=== PATIENT | male | born 1940 | race Caucasian/White ===

== ENCOUNTER 2016-07-31 13:45 | Inpatient (IN) | payer BC, MEDICARE ==
[~2016-07-31] VITALS: Ht 190.5 cm; Wt 95.7 kg
[~2016-07-31 13:45] MED LIST: ALLO100T PO; AMOX1TAB61 PO; ASPI81TA9 PO; ATOR20TA58 PO; CIPR500T94 PO; DEXL60CA PO; DILT180C29 PO; FINA5TAB PO; FURO-68 PO; FURO20TA3 PO; LISI-334 PO; LISI1TAB5 PO; MAGN400T22 PO; METO25TA4 PO; SENN8.6T3 PO; TIOT18CA IH; WARF1TAB74 PO; WARF2TAB PO; WARF5TAB7 PO
[2016-07-31 14:37] LABS: BILIRUBIN,URINE NEGATIVE (NEG); GLUCOSE,URINE NEGATIVE (NEG); NITRITE,URINE POSITIVE (NEG); PROTEIN,URINE 30 mg/dL (NEG-TRACE)
[2016-07-31 14:48] LABS: BACTERIA,URINE MANY /HPF (0-FEW); RBC,URINE >40 /HPF (0-2); SQUAMOUS EPITHELIAL CELL,UR OCC /LPF; WBC,URINE >40 /HPF (0-4)
[2016-07-31 15:07] LABS: INR 3.8 (0.8-1.1); PROTHROMBIN TIME PATIENT 34.9 SEC (11.7-14.0)
[2016-07-31] MEDS ORDERED: IV NORMAL SALINE 1000ML BAG 1,000 ML IV SCH (15:30)
[2016-07-31] MEDS ORDERED: ACETAMINOPHEN 325 MG TABLET. PO PRN (15:45)
[2016-07-31] MEDS ORDERED: PIP/TAZO PER PHARMACY MC PRN (15:45)
[2016-07-31] MEDS ORDERED: ONDANSETRON PF 4 MG/2 ML VIAL. IV PRN (15:45)
[2016-07-31 15:58] LABS: BASO % 1 % (0-3); EOS % 3 % (0-3); HEMATOCRIT 32.1 % (39.0-53.0); HEMOGLOBIN 11.1 g/dL (13.0-17.5); LYMPH # 1.5 x10^3/uL (1.0-4.8); LYMPH % 25 % (24-48); MEAN CORPUSCULAR HEMOGLOBIN 32 pg (25-35); MEAN CORPUSCULAR HGB CONC 35 g/dL (31-37); MEAN CORPUSCULAR VOLUME 92 fL (79-100); MONO % 9 % (0-9); NEUT % 63 % (31-73); PLATELET COUNT 137 x10^3/uL (140-400); RED BLOOD COUNT 3.49 x10^6/uL (4.30-5.70); RED CELL DISTRIBUTION WIDTH 15.7 % (11.5-14.5); WHITE BLOOD COUNT 6.1 x10^3/uL (4.0-11.0)
[2016-07-31] MEDS ORDERED: PIPERACILLIN/TAZOBACTAM 3.375 GM in IV NORMAL SALINE 50ML 50 ML IV ONE (16:00)
--- NOTE | 2016-07-31 16:18 | PDOC1 ---
History and Physical Date of Admission Date of Admission DATE: 07/31/16 TIME: 16:14 History of Present Illness History of Present Illness Mr. Miramontes, is a 75 year old male admit with hematuria, foul and cloudy urine He self caths for BPH, his insurance changed, and now he has to clean and re- use catheters, he has questions about this, how to maintain sterility and what are the best caths to avoid problems UA showed UTI, prior resistant organism per lab, ER was concerned with DC on levaquin due to QT interval, Past Medical History Cardiovascular: AFIB, HTN, Hyperlipidemia Pulmonary: Bronchitis, COPD, Pneumonia CENTRAL NERVOUS SYSTEM: Seizure GI: GERD Heme/Onc: Cancer, Other Psych: No pertinent hx Musculoskeletal: Osteoarthritis Rheumatologic: Gout Infectious disease: No pertinent hx Renal/: Chronic renal insuff, Benign prostatic enlarg., Hematuria Endocrine: No pertinent hx Past Surgical History Past Surgical History: Tonsillectomy, Colon Resection Family History Family History: Hypertension Social History Smoke: No (his smokes) ALCOHOL: none Drugs: None Current Medications Current Medications Current Medications Sodium Chloride 1,000 ml @ 1,000 mls/hr Q1H IV Last administered on 07/31/16 15:46; Start 07/31/16 at 15:30; Stop 07/31/16 at 16:29 Ondansetron HCl (Zofran) 4 mg PRN Q8HRS PRN IV NAUSEA/VOMITING; Start 07/31/16 at 15:45; Stop 08/01/16 at 15:44 Sodium Chloride 1,000 ml @ 100 mls/hr Q10H IV ; Start 07/31/16 at 15:36; Stop at 15:35 Acetaminophen (Tylenol) 650 mg PRN Q4HRS PRN PO FEVER; Start 07/31/16 at 15:45; Stop 08/01/16 at 15:44 Piperacillin Sod/ Tazobactam Sod (Zosyn Per Pharmacy) 1 each PRN DAILY PRN MC SEE COMMENTS; Start 07/31/16 at 15:45; Status UNV Piperacillin Sod/ Tazobactam Sod 3.375 gm/Sodium Chloride 50 ml @ 100 mls/hr 1X ONCE IV Last administered on 07/31/16 16:00; Start 07/31/16 at 16:00; Stop 07/31/16 at 16:29 Active Scripts Active Metoprolol Tartrate 25 Mg Tablet 12.5 Mg PO BID Senna (Sennosides) 8.6 Mg Tablet 8.6 Mg PO PRN BID PRN Mag-Oxide (Magnesium Oxide) 400 Mg Tablet 400 Mg PO DAILY Furosemide 20 Mg Tablet 60 Mg PO [id number] Reported Dexilant (Dexlansoprazole) 60 Mg Cap.mp 1 Cap PO DAILY Spiriva (Tiotropium [place]) 18 Mcg Cap.w.dev 1 Cap IH DAILY Warfarin Sodium 5 Mg Tablet 5 Mg PO DAILY Lisinopril 20 Mg Tablet 1 Tab PO DAILY Indication: blood pressure Next dose: 05/09/14 am Proscar (Finasteride) 5 Mg Tablet 1 Tab PO DAILY Indication: prostate Next dose; 05/09/14 am Diltiazem 24HR Cd (Diltiazem Hcl) 180 Mg Cap.er.24h 1 Cap PO DAILY Indication: heart rate/afib Next dose: 05/09/14 am Atorvastatin Calcium 20 Mg Tablet 20 Mg PO HS Indication: cholesterol Next dose; 05/09/14 bedtime Aspirin Ec (Aspirin) 81 Mg Tablet. 1 Tab PO DAILY Indication: heart/blood thinner Next dose: 05/09/14 am Allopurinol 100 Mg Tablet 100 Mg PO DAILY Allergies Allergies: Coded Allergies: No Known Drug Allergies (Unverified , 03/11/13) ROS General: No: Chills, Night Sweats, Fatigue, Malaise, Appetite, Other Respiratory: No: Cough, Hemoptysis, Orthopnea, Pleuritic Pain, Shortness of breath, SOB with excertion, Sputum Changes, Stridor, Tachypnea, Wheezing, Other Cardiovascular: No Chest Pain, No Palpitations, No Orthopnea, No Paroxysmal Noc. Dyspnea, No Edema, No Lt Headedness, No Other Gastrointestinal: Yes Nausea, No Vomiting, No Abdominal Pain, No Diarrhea, No Constipation, No Melena, No Hematochezia, No Other Genitourinary: YES Dysuria, YES Hematuria, YES Retention, No Frequency, No Incontinence, No Discharge, No Urgency, No Pain, No Flank Pain, No Other, No , No , No , No , No , No , No Musculoskeletal: Yes Joint Pain, Yes Joint Stiffness (knees), No Gait Disturbance, No Joint Swelling, No Muscle Pain, No Muscular Weakness , No Pain In:, No Swelling In:, No Other Neurological: No Behavorial Changes, No Bowel/Bladder ControlChng, No Confusion , No Dizziness, No Gait Disturbance, No Headaches, No Impaired Coord/balance, No Memory Loss, No Numbness/Tingling, No Seizures, No Speech Problems, No Tremors, No Visual Changes, No Weakness, No Other Skin: No Dry Skin, No Eczema, No Hair Changes, No Lumps, No Mole Changes, No Mottling, No Nail Changes, No Pruritus, No Rash, No Skin Lesion Changes, No Other, No Acne Physical Exam General: Alert, Oriented X3, Cooperative, No acute distress HEENT: EOMI Lungs: Normal air movement Heart: no gallops, no murmurs Abdomen: Soft Rectal Exam: deferred Extremities: No cyanosis, No edema Skin: No significant lesion Neuro: Normal tone, Sensation intact Psych/Mental Status: Mood NL Vitals Vitals Vital Signs Date Time Temp Pulse Resp B/P (MAP) Pulse Ox O2 Delivery O2 Flow Rate FiO2 07/31/16 15:47 72 20 164/82 (109) 100 Room Air 07/31/16 14:08 98.3 98.3 Labs Labs Laboratory Tests Test 07/31/16 14:00 07/31/16 14:50 07/31/16 15:40 Urine Collection Type Unknown Urine Color Yellow Urine Clarity Cloudy Urine pH 6.0 Urine Specific [place] 1.010 Urine Protein 30 mg/dL (NEG-TRACE) Urine Glucose (UA) Negative mg/dL (NEG) Urine Ketones (Stick) Negative mg/dL (NEG) Urine Blood Large (NEG) Urine Nitrite Positive (NEG) Urine Bilirubin Negative (NEG) Urine Urobilinogen Dipstick 1.0 mg/dL (0.2 mg/dL) Urine Leukocyte Esterase Large (NEG) Urine RBC >40 /HPF (0-2) Urine WBC >40 /HPF (0-4) Urine Squamous Epithelial Cells Occ /LPF Urine Bacteria Many /HPF (0-FEW) Urine Mucus Mod /LPF Prothrombin Time 34.9 SEC (11.7-14.0) Prothromb Time International Ratio 3.8 (0.8-1.1) White Blood Count 6.1 x10^3/uL (4.0-11.0) Red Blood Count 3.49 x10^6/uL (4.30-5.70) Hemoglobin 11.1 g/dL (13.0-17.5) Hematocrit 32.1 % (39.0-53.0) Mean Corpuscular Volume 92 fL (79-100) Mean Corpuscular Hemoglobin 32 pg (25-35) Mean Corpuscular Hemoglobin Concent 35 g/dL (31-37) Red Cell Distribution Width 15.7 % (11.5-14.5) Platelet Count 137 x10^3/uL (140-400) Neutrophils (%) (Auto) 63 % (31-73) Lymphocytes (%) (Auto) 25 % (24-48) Monocytes (%) (Auto) 9 % (0-9) Eosinophils (%) (Auto) 3 % (0-3) Basophils (%) (Auto) 1 % (0-3) Neutrophils # (Auto) 3.8 x10^3uL (1.8-7.7) Lymphocytes # (Auto) 1.5 x10^3/uL (1.0-4.8) Monocytes # (Auto) 0.5 x10^3/uL (0.0-1.1) Eosinophils # (Auto) 0.2 x10^3/uL (0.0-0.7) Basophils # (Auto) 0.0 x10^3/uL (0.0-0.2) Laboratory Tests Test 07/31/16 14:00 07/31/16 14:50 07/31/16 15:40 Urine Collection Type Unknown Urine Color Yellow Urine Clarity Cloudy Urine pH 6.0 Urine Specific [place] 1.010 Urine Protein 30 mg/dL (NEG-TRACE) Urine Glucose (UA) Negative mg/dL (NEG) Urine Ketones (Stick) Negative mg/dL (NEG) Urine Blood Large (NEG) Urine Nitrite Positive (NEG) Urine Bilirubin Negative (NEG) Urine Urobilinogen Dipstick 1.0 mg/dL (0.2 mg/dL) Urine Leukocyte Esterase Large (NEG) Urine RBC >40 /HPF (0-2) Urine WBC >40 /HPF (0-4) Urine Squamous Epithelial Cells Occ /LPF Urine Bacteria Many /HPF (0-FEW) Urine Mucus Mod /LPF Prothrombin Time 34.9 SEC (11.7-14.0) Prothromb Time International Ratio 3.8 (0.8-1.1) White Blood Count 6.1 x10^3/uL (4.0-11.0) Red Blood Count 3.49 x10^6/uL (4.30-5.70) Hemoglobin 11.1 g/dL (13.0-17.5) Hematocrit 32.1 % (39.0-53.0) Mean Corpuscular Volume 92 fL (79-100) Mean Corpuscular Hemoglobin 32 pg (25-35) Mean Corpuscular Hemoglobin Concent 35 g/dL (31-37) Red Cell Distribution Width 15.7 % (11.5-14.5) Platelet Count 137 x10^3/uL (140-400) Neutrophils (%) (Auto) 63 % (31-73) Lymphocytes (%) (Auto) 25 % (24-48) Monocytes (%) (Auto) 9 % (0-9) Eosinophils (%) (Auto) 3 % (0-3) Basophils (%) (Auto) 1 % (0-3) Neutrophils # (Auto) 3.8 x10^3uL (1.8-7.7) Lymphocytes # (Auto) 1.5 x10^3/uL (1.0-4.8) Monocytes # (Auto) 0.5 x10^3/uL (0.0-1.1) Eosinophils # (Auto) 0.2 x10^3/uL (0.0-0.7) Basophils # (Auto) 0.0 x10^3/uL (0.0-0.2) VTE Prophylaxis Ordered VTE Prophylaxis Devices: Yes VTE Pharmacological Prophylaxi: No Assessment/Plan Assessment/Plan UTI, hx resistant UTI, no SIRS urinary retention, self-cath, has been reusing he has Uro questions and is without a urologist currently CKD 3 anemia of CKD COPD, history tobaccoism, has quit, resp status stable PCP is MD ARON Hawkins IRA W MD July 31, 2016 16:18
[2016-07-31 16:20] LABS: CALCIUM 8.4 mg/dL (8.5-10.1); CREATININE 2.4 mg/dL (0.7-1.3); GFR 26.4; POTASSIUM 5.3 mmol/L (3.5-5.1)
--- NOTE | 2016-07-31 16:24 | PHYS DOC ---
Past Medical History Past Medical History: A-Fib, Cancer, CHF, COPD, GERD, High Cholesterol, Hypertension, Pneumonia, Other Additional Past Medical Histor: COLON CA, GOUT,ENLARGE PROSTATE Past Surgical History: Cancer Surgery, Tonsillectomy Additional Past Surgical Histo: colon resection secondary to colon CA Alcohol Use: Rarely Drug Use: None Adult General Chief Complaint Chief Complaint: BLOOD IN URINE [facility] HPI Patient is a 75 year old male who presents with complaint of hematuria. Patient has history of neurogenic bladder and currently self catheterizes for voiding. Patient states he started noticing blood in his urine over the past 2- 3 days. Patient has history of atrial fibrillation currently on warfarin therapy. Due to the presence of blood the patient states he held his Coumadin dose today. Patient also notes a foul smell to his urine. Patient notes that due to a change in his insurance he is no longer able to purchase single use catheters and has been reusing catheters at home after washing them in antibacterial solution. Denies pain, fever, nausea, vomiting, or dizziness. Review of Systems Review of Systems Constitutional: Denies fever or chills [] Eyes: Denies change in visual acuity, redness, or eye pain [] HENT: Denies nasal congestion or sore throat [] Respiratory: Denies cough or shortness of breath [] Cardiovascular: No additional information not addressed in HPI [] GI: Denies abdominal pain, nausea, vomiting, bloody stools or diarrhea [] : Hematuria, foul-smelling urine [] Musculoskeletal: Denies back pain or joint pain [] Integument: Denies rash or skin lesions [] Neurologic: Denies headache, focal weakness or sensory changes [] Current Medications Current Medications Current Medications Medications (Trade) Dose Ordered Sig/Amara Start Time Stop Time Status Last Admin Dose Admin Acetaminophen (Tylenol) 650 mg PRN Q4HRS PRN 07/31/16 15:45 08/01/16 15:44 Ondansetron HCl (Zofran) 4 mg PRN Q8HRS PRN 07/31/16 15:45 08/01/16 15:44 Piperacillin Sod/ Tazobactam Sod (Zosyn Per Pharmacy) 1 each PRN DAILY PRN 07/31/16 15:45 Sodium Chloride 1,000 ml @ 100 mls/hr Q10H 07/31/16 15:36 08/01/16 15:35 Allergies Allergies Allergies Coded Allergies Type Severity Reaction Last Updated Verified No Known Drug Allergies 03/11/13 No Physical Exam Physical Exam Constitutional: Alert, afebrile, no acute distress. [] HENT: Normocephalic, atraumatic, bilateral external ears normal, oropharynx moist, no oral exudates, nose normal. [] Eyes: PERRLA, EOMI, conjunctiva normal, no discharge. [] Neck: Normal range of motion, no tenderness, supple, no stridor. [] Cardiovascular:Heart rate regular rhythm, no murmur [] Lungs & Thorax: Bilateral breath sounds clear to auscultation [] Abdomen: Bowel sounds normal, soft, no tenderness, no masses, no pulsatile masses. [] Skin: Warm, dry, no erythema, no rash. [] Back: No tenderness, no CVA tenderness. [] Extremities: No tenderness, no cyanosis, no clubbing, ROM intact, multiple ecchymoses on bilateral. [] Neurologic: Alert and oriented X 3, normal motor function, normal sensory function, no focal deficits noted. [] Current Patient Data Vital Signs Vital Signs Date Time Temp Pulse Resp B/P (MAP) Pulse Ox O2 Delivery O2 Flow Rate FiO2 07/31/16 14:08 98.3 79 22 99 Room Air 98.3 Lab Values Laboratory Tests Test 07/31/16 14:00 07/31/16 14:50 07/31/16 15:40 Urine Collection Type Unknown Urine Color Yellow Urine Clarity Cloudy Urine pH 6.0 Urine Specific [place] 1.010 Urine Protein 30 mg/dL (NEG-TRACE) Urine Glucose (UA) Negative mg/dL (NEG) Urine Ketones (Stick) Negative mg/dL (NEG) Urine Blood Large (NEG) Urine Nitrite Positive (NEG) Urine Bilirubin Negative (NEG) Urine Urobilinogen Dipstick 1.0 mg/dL (0.2 mg/dL) Urine Leukocyte Esterase Large (NEG) Urine RBC >40 /HPF (0-2) Urine WBC >40 /HPF (0-4) Urine Squamous Epithelial Cells Occ /LPF Urine Bacteria Many /HPF (0-FEW) Urine Mucus Mod /LPF Prothrombin Time 34.9 SEC (11.7-14.0) H Prothrombin Time INR 3.8 (0.8-1.1) H White Blood Count 6.1 x10^3/uL (4.0-11.0) Red Blood Count 3.49 x10^6/uL (4.30-5.70) L Hemoglobin 11.1 g/dL (13.0-17.5) L Hematocrit 32.1 % (39.0-53.0) L Mean Corpuscular Volume 92 fL (79-100) Mean Corpuscular Hemoglobin 32 pg (25-35) Mean Corpuscular Hemoglobin Concent 35 g/dL (31-37) Red Cell Distribution Width 15.7 % (11.5-14.5) H Platelet Count 137 x10^3/uL (140-400) L Neutrophils (%) (Auto) 63 % (31-73) Lymphocytes (%) (Auto) 25 % (24-48) Monocytes (%) (Auto) 9 % (0-9) Eosinophils (%) (Auto) 3 % (0-3) Basophils (%) (Auto) 1 % (0-3) Neutrophils # (Auto) 3.8 x10^3uL (1.8-7.7) Lymphocytes # (Auto) 1.5 x10^3/uL (1.0-4.8) Monocytes # (Auto) 0.5 x10^3/uL (0.0-1.1) Eosinophils # (Auto) 0.2 x10^3/uL (0.0-0.7) Basophils # (Auto) 0.0 x10^3/uL (0.0-0.2) Sodium Level 134 mmol/L (136-145) L Potassium Level 5.3 mmol/L (3.5-5.1) H Chloride Level 101 mmol/L (98-107) Carbon Dioxide Level 26 mmol/L (21-32) Anion Gap 7 (6-14) Blood Urea Nitrogen 46 mg/dL (8-26) H Creatinine 2.4 mg/dL (0.7-1.3) H Estimated GFR (Cockcroft-Gault) 26.4 BUN/Creatinine Ratio 19 (6-20) Glucose Level 99 mg/dL (70-99) Calcium Level 8.4 mg/dL (8.5-10.1) L Total Bilirubin 0.8 mg/dL (0.2-1.0) Aspartate Amino Transferase (AST) 26 U/L (15-37) Alanine Aminotransferase (ALT) 27 U/L (16-63) Alkaline Phosphatase 95 U/L (46-116) Total Protein 7.5 g/dL (6.4-8.2) Albumin 3.5 g/dL (3.4-5.0) Albumin/Globulin Ratio 0.9 (1.0-1.7) L Laboratory Tests 07/31/16 15:40 Laboratory Tests 07/31/16 15:40 EKG EKG Not performed [] Radiology/Procedures Radiology/Procedures Not performed [] Course & Med Decision Making Course & Med Decision Making Pertinent Labs and Imaging studies reviewed. (See chart for details) Patient found to have UTI and supratherapeutic INR. Patient requires coverage for possible pseudomonas infection due to self-catheterization. Due to Levaquin causing prolonged effect of Coumadin, patient treatment with this medication not appropriate. Patient's only option for treatment at this time is IV Zosyn to provide adequate coverage. Spoke with patient who is agreeable to admission. Spoke with Dr. Baron who agreed to accept patient for admission. Dragon Disclaimer Dragon Disclaimer This electronic medical record was generated, in whole or in part, using a voice recognition dictation system. Departure Departure Impression: Primary Impression: UTI (lower urinary tract infection) Additional Impression: Warfarin-induced coagulopathy Disposition: 09 ADMITTED INPATIENT Admitting Physician: Bridgett Baron Condition: STABLE Referrals: CLARENCE BROOKS (PCP) Problem Qualifiers LUIS ENRIQUE WALTER MD July 31, 2016 16:23
[2016-07-31 16:27] LABS: ALBUMIN 3.5 g/dL (3.4-5.0); ALBUMIN/GLOBULIN RATIO 0.9 (1.0-1.7); TOTAL BILIRUBIN 0.8 mg/dL (0.2-1.0); TOTAL PROTEIN 7.5 g/dL (6.4-8.2)
[2016-07-31] MEDS ORDERED: SENNOSIDES 8.6 MG TABLET PO PRN (16:30)
[2016-07-31] MEDS: IPRATRPIUM/ALBUTEROL 0.5/2.5MG 3 ML NEBU. NEB SCH ×2 (17:00→20:20)
[2016-07-31 17:47] VITALS: BP 149/62
[2016-07-31 19:00] VITALS: BP 177/57
[2016-07-31] MEDS: ATORVASTATIN CALCIUM 20 MG TABLET PO SCH (20:49)
[2016-07-31] MEDS: METOPROLOL TART IMMED RELEASE 25 MG TABLET. PO SCH (20:49)
[2016-07-31] MEDS: IV NORMAL SALINE 1000ML BAG 1,000 ML IV SCH (20:49)
[2016-07-31] MEDS ORDERED: WARF5TAB7 PO (21:07)
[2016-07-31] MEDS ORDERED: WARF-78 PO ×2 (21:07→21:12)
[2016-07-31] MEDS ORDERED: WARF7.5T48 PO (21:12)
[2016-07-31] MEDS ORDERED: ANTI-COAG MONITOR BY PHARMACY. MC PRN (21:30)
[2016-07-31 23:00] VITALS: BP 114/62
[2016-07-31] MEDS: PIPERACILLIN/TAZOBACTAM 2.25 GM in IV NORMAL SALINE 50ML 50 ML IV SCH (23:07)
--- NOTE | 2016-08-01 02:30 | ACF ---
Admit Criteria Forms Admit Criteria Forms Admit Criteria Forms URINARY COMPLICATIONS Clinical Indications for Inpatient Care (Place 'X' for any and all applicable criteria): Ongoing inpatient care may be indicated for urinary complications with ANY ONE of the following: [X]I. Urinary tract infection requiring inpatient care as indicated by ANY ONE of the following(8)(19)(20): [ ]a) Severe symptoms (eg, high fever, severe pain) [ ]b) Vomiting or dehydration requiring ongoing inpatient care [X]c) IV antibiotic needs that cannot be managed at lower level of care [ ]d) Hemodynamic instability [ ]e) Obstruction of collecting system by stone or tumor [ ]II. Urinary retention requiring drainage or surgery (3)(4)(5)(17)(18) [ ]III. Renal failure (Use Renal Failure Criteria for further information.) [ ]IV. Oliguria(30) [ ]V. Post obstructive diuresis requiring close monitoring of urine output and intravenous compensation for excessive fluid losses(33) Extended stay beyond goal length of stay for primary condition may be needed until ALL of the following are present(3)(4)(5)(8): [ ]a) Renal function (creatinine) at baseline, or daily decreases in creatinine consistent with renal function return [ ]b) Voiding adequately or with urinary catheter or percutaneous suprapubic tube and management regimen in place that is performable at lower level of care. [ ]c) Urine output adequate [ ]d) Fever absent or resolving [ ]e) Infection absent or treatable at next level of care The original [employer] content created by [employer] has been revised. The portions of the content which have been revised are identified through the use of italic text or in bold, and [facility] has neither reviewed nor approved the modified material. All other unmodified content is copyright [facility] Please see references footnoted in the original [facility] edition 2016 EMILY JIN August 01, 2016 02:30
[2016-08-01] MEDS: IV NORMAL SALINE 1000ML BAG 1,000 ML IV SCH ×2 (05:17→15:20)
[2016-08-01] MEDS: PIPERACILLIN/TAZOBACTAM 2.25 GM in IV NORMAL SALINE 50ML 50 ML IV SCH ×4 (05:17→23:25)
[2016-08-01] MEDS: PANTOPRAZOLE 40 MG TABLET.DR. PO SCH (06:05)
[2016-08-01 06:11] LABS: BASO % 0 % (0-3); EOS % 4 % (0-3); HEMATOCRIT 29.7 % (39.0-53.0); HEMOGLOBIN 10.2 g/dL (13.0-17.5); LYMPH # 1.5 x10^3/uL (1.0-4.8); LYMPH % 23 % (24-48); MEAN CORPUSCULAR HEMOGLOBIN 32 pg (25-35); MEAN CORPUSCULAR HGB CONC 34 g/dL (31-37); MEAN CORPUSCULAR VOLUME 94 fL (79-100); MONO % 9 % (0-9); NEUT % 64 % (31-73); PLATELET COUNT 103 x10^3/uL (140-400); RED BLOOD COUNT 3.17 x10^6/uL (4.30-5.70); RED CELL DISTRIBUTION WIDTH 15.6 % (11.5-14.5); WHITE BLOOD COUNT 6.4 x10^3/uL (4.0-11.0)
[2016-08-01 06:28] LABS: INR 3.7 (0.8-1.1); PROTHROMBIN TIME PATIENT 34.1 SEC (11.7-14.0)
[2016-08-01 06:33] LABS: ALBUMIN 3.1 g/dL (3.4-5.0); ALBUMIN/GLOBULIN RATIO 0.9 (1.0-1.7); CALCIUM 7.9 mg/dL (8.5-10.1); CREATININE 2.4 mg/dL (0.7-1.3); GFR 26.4; TOTAL BILIRUBIN 0.8 mg/dL (0.2-1.0); TOTAL PROTEIN 6.6 g/dL (6.4-8.2)
[2016-08-01 07:00] VITALS: BP 124/68
[2016-08-01] MEDS: IPRATRPIUM/ALBUTEROL 0.5/2.5MG 3 ML NEBU. NEB SCH ×4 (07:30→20:03)
[2016-08-01] MEDS ORDERED: FURO20TA3 PO (08:47)
[2016-08-01] MEDS: LISINOPRIL 20 MG TABLET PO SCH (08:51)
[2016-08-01] MEDS: METOPROLOL TART IMMED RELEASE 25 MG TABLET. PO SCH ×2 (08:54→20:52)
[2016-08-01] MEDS: ALLOPURINOL 100 MG TABLET. PO SCH (08:54)
[2016-08-01] MEDS: ASPIRIN ENTERIC COATED 81 MG TABLET.DR. PO SCH (08:54)
[2016-08-01] MEDS: FINASTERIDE 5 MG TABLET. PO SCH (08:55)
[2016-08-01] MEDS ORDERED: FUROSEMIDE 20 MG TABLET PO SCH (09:00)
[2016-08-01] MEDS ORDERED: NON FORMULARY ITEM (Tiotropium Bromide (Spiriva) 1 CAP) IH SCH (09:00)
[2016-08-01] MEDS ORDERED: MAGNESIUM OXIDE 400 MG TABLET PO SCH (09:00)
[2016-08-01 11:00] VITALS: BP 152/63
--- NOTE | 2016-08-01 11:44 | PDOC ---
PROGRESS NOTES Subjective Subjective Pt. 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 Plan Plan of Care Keep [facility] Renal sono Renal consult F/U with regular urologist Dr. Eckert in 1-2 weeks Problems Medical Problems: (1) UTI (lower urinary tract infection) Status: Acute (2) Warfarin-induced coagulopathy Status: Acute Comment Review of Relevant I have reviewed the following items emile (where applicable) has been applied. Labs Laboratory Tests Test 07/31/16 14:00 07/31/16 14:50 07/31/16 15:40 08/01/16 04:45 Urine Collection Type Unknown Urine Color Yellow Urine Clarity Cloudy Urine pH 6.0 Urine Specific [place] 1.010 Urine Protein 30 mg/dL (NEG-TRACE) Urine Glucose (UA) Negative mg/dL (NEG) Urine Ketones (Stick) Negative mg/dL (NEG) Urine Blood Large (NEG) Urine Nitrite Positive (NEG) Urine Bilirubin Negative (NEG) Urine Urobilinogen Dipstick 1.0 mg/dL (0.2 mg/dL) Urine Leukocyte Esterase Large (NEG) Urine RBC >40 /HPF (0-2) Urine WBC >40 /HPF (0-4) Urine Squamous Epithelial Cells Occ /LPF Urine Bacteria Many /HPF (0-FEW) Urine Mucus Mod /LPF Prothrombin Time 34.9 SEC (11.7-14.0) 34.1 SEC (11.7-14.0) Prothromb Time International Ratio 3.8 (0.8-1.1) 3.7 (0.8-1.1) White Blood Count 6.1 x10^3/uL (4.0-11.0) 6.4 x10^3/uL (4.0-11.0) Red Blood Count 3.49 x10^6/uL (4.30-5.70) 3.17 x10^6/uL (4.30-5.70) Hemoglobin 11.1 g/dL (13.0-17.5) 10.2 g/dL (13.0-17.5) Hematocrit 32.1 % (39.0-53.0) 29.7 % (39.0-53.0) Mean Corpuscular Volume 92 fL (79-100) 94 fL (79-100) Mean Corpuscular Hemoglobin 32 pg (25-35) 32 pg (25-35) Mean Corpuscular Hemoglobin Concent 35 g/dL (31-37) 34 g/dL (31-37) Red Cell Distribution Width 15.7 % (11.5-14.5) 15.6 % (11.5-14.5) Platelet Count 137 x10^3/uL (140-400) 103 x10^3/uL (140-400) Neutrophils (%) (Auto) 63 % (31-73) 64 % (31-73) Lymphocytes (%) (Auto) 25 % (24-48) 23 % (24-48) Monocytes (%) (Auto) 9 % (0-9) 9 % (0-9) Eosinophils (%) (Auto) 3 % (0-3) 4 % (0-3) Basophils (%) (Auto) 1 % (0-3) 0 % (0-3) Neutrophils # (Auto) 3.8 x10^3uL (1.8-7.7) 4.1 x10^3uL (1.8-7.7) Lymphocytes # (Auto) 1.5 x10^3/uL (1.0-4.8) 1.5 x10^3/uL (1.0-4.8) Monocytes # (Auto) 0.5 x10^3/uL (0.0-1.1) 0.5 x10^3/uL (0.0-1.1) Eosinophils # (Auto) 0.2 x10^3/uL (0.0-0.7) 0.2 x10^3/uL (0.0-0.7) Basophils # (Auto) 0.0 x10^3/uL (0.0-0.2) 0.0 x10^3/uL (0.0-0.2) Sodium Level 134 mmol/L (136-145) 137 mmol/L (136-145) Potassium Level 5.3 mmol/L (3.5-5.1) 5.0 mmol/L (3.5-5.1) Chloride Level 101 mmol/L (98-107) 106 mmol/L (98-107) Carbon Dioxide Level 26 mmol/L (21-32) 25 mmol/L (21-32) Anion Gap 7 (6-14) 6 (6-14) Blood Urea Nitrogen 46 mg/dL (8-26) 43 mg/dL (8-26) Creatinine 2.4 mg/dL (0.7-1.3) 2.4 mg/dL (0.7-1.3) Estimated GFR (Cockcroft-Gault) 26.4 26.4 BUN/Creatinine Ratio 19 (6-20) 18 (6-20) Glucose Level 99 mg/dL (70-99) 100 mg/dL (70-99) Calcium Level 8.4 mg/dL (8.5-10.1) 7.9 mg/dL (8.5-10.1) Total Bilirubin 0.8 mg/dL (0.2-1.0) 0.8 mg/dL (0.2-1.0) Aspartate Amino Transf (AST/SGOT) 26 U/L (15-37) 23 U/L (15-37) Alanine Aminotransferase (ALT/SGPT) 27 U/L (16-63) 23 U/L (16-63) Alkaline Phosphatase 95 U/L (46-116) 80 U/L (46-116) Total Protein 7.5 g/dL (6.4-8.2) 6.6 g/dL (6.4-8.2) Albumin 3.5 g/dL (3.4-5.0) 3.1 g/dL (3.4-5.0) Albumin/Globulin Ratio 0.9 (1.0-1.7) 0.9 (1.0-1.7) Laboratory Tests Test 07/31/16 14:00 07/31/16 14:50 07/31/16 15:40 08/01/16 04:45 Urine Collection Type Unknown Urine Color Yellow Urine Clarity Cloudy Urine pH 6.0 Urine Specific [place] 1.010 Urine Protein 30 mg/dL (NEG-TRACE) Urine Glucose (UA) Negative mg/dL (NEG) Urine Ketones (Stick) Negative mg/dL (NEG) Urine Blood Large (NEG) Urine Nitrite Positive (NEG) Urine Bilirubin Negative (NEG) Urine Urobilinogen Dipstick 1.0 mg/dL (0.2 mg/dL) Urine Leukocyte Esterase Large (NEG) Urine RBC >40 /HPF (0-2) Urine WBC >40 /HPF (0-4) Urine Squamous Epithelial Cells Occ /LPF Urine Bacteria Many /HPF (0-FEW) Urine Mucus Mod /LPF Prothrombin Time 34.9 SEC (11.7-14.0) 34.1 SEC (11.7-14.0) Prothromb Time International Ratio 3.8 (0.8-1.1) 3.7 (0.8-1.1) White Blood Count 6.1 x10^3/uL (4.0-11.0) 6.4 x10^3/uL (4.0-11.0) Red Blood Count 3.49 x10^6/uL (4.30-5.70) 3.17 x10^6/uL (4.30-5.70) Hemoglobin 11.1 g/dL (13.0-17.5) 10.2 g/dL (13.0-17.5) Hematocrit 32.1 % (39.0-53.0) 29.7 % (39.0-53.0) Mean Corpuscular Volume 92 fL (79-100) 94 fL (79-100) Mean Corpuscular Hemoglobin 32 pg (25-35) 32 pg (25-35) Mean Corpuscular Hemoglobin Concent 35 g/dL (31-37) 34 g/dL (31-37) Red Cell Distribution Width 15.7 % (11.5-14.5) 15.6 % (11.5-14.5) Platelet Count 137 x10^3/uL (140-400) 103 x10^3/uL (140-400) Neutrophils (%) (Auto) 63 % (31-73) 64 % (31-73) Lymphocytes (%) (Auto) 25 % (24-48) 23 % (24-48) Monocytes (%) (Auto) 9 % (0-9) 9 % (0-9) Eosinophils (%) (Auto) 3 % (0-3) 4 % (0-3) Basophils (%) (Auto) 1 % (0-3) 0 % (0-3) Neutrophils # (Auto) 3.8 x10^3uL (1.8-7.7) 4.1 x10^3uL (1.8-7.7) Lymphocytes # (Auto) 1.5 x10^3/uL (1.0-4.8) 1.5 x10^3/uL (1.0-4.8) Monocytes # (Auto) 0.5 x10^3/uL (0.0-1.1) 0.5 x10^3/uL (0.0-1.1) Eosinophils # (Auto) 0.2 x10^3/uL (0.0-0.7) 0.2 x10^3/uL (0.0-0.7) Basophils # (Auto) 0.0 x10^3/uL (0.0-0.2) 0.0 x10^3/uL (0.0-0.2) Sodium Level 134 mmol/L (136-145) 137 mmol/L (136-145) Potassium Level 5.3 mmol/L (3.5-5.1) 5.0 mmol/L (3.5-5.1) Chloride Level 101 mmol/L (98-107) 106 mmol/L (98-107) Carbon Dioxide Level 26 mmol/L (21-32) 25 mmol/L (21-32) Anion Gap 7 (6-14) 6 (6-14) Blood Urea Nitrogen 46 mg/dL (8-26) 43 mg/dL (8-26) Creatinine 2.4 mg/dL (0.7-1.3) 2.4 mg/dL (0.7-1.3) Estimated GFR (Cockcroft-Gault) 26.4 26.4 BUN/Creatinine Ratio 19 (6-20) 18 (6-20) Glucose Level 99 mg/dL (70-99) 100 mg/dL (70-99) Calcium Level 8.4 mg/dL (8.5-10.1) 7.9 mg/dL (8.5-10.1) Total Bilirubin 0.8 mg/dL (0.2-1.0) 0.8 mg/dL (0.2-1.0) Aspartate Amino Transf (AST/SGOT) 26 U/L (15-37) 23 U/L (15-37) Alanine Aminotransferase (ALT/SGPT) 27 U/L (16-63) 23 U/L (16-63) Alkaline Phosphatase 95 U/L (46-116) 80 U/L (46-116) Total Protein 7.5 g/dL (6.4-8.2) 6.6 g/dL (6.4-8.2) Albumin 3.5 g/dL (3.4-5.0) 3.1 g/dL (3.4-5.0) Albumin/Globulin Ratio 0.9 (1.0-1.7) 0.9 (1.0-1.7) Medications Current Medications Sodium Chloride 1,000 ml @ 1,000 mls/hr Q1H IV Last administered on 07/31/16 15:46; Start 07/31/16 at 15:30; Stop 07/31/16 at 16:30; Status DC Ondansetron HCl (Zofran) 4 mg PRN Q8HRS PRN IV NAUSEA/VOMITING; Start 07/31/16 at 15:45; Stop 08/01/16 at 15:44 Sodium Chloride 1,000 ml @ 100 mls/hr Q10H IV Last administered on 08/01/16 05 :17; Start 07/31/16 at 15:36; Stop 08/01/16 at 15:35 Acetaminophen (Tylenol) 650 mg PRN Q4HRS PRN PO FEVER; Start 07/31/16 at 15:45; Stop 08/01/16 at 15:44 Piperacillin Sod/ Tazobactam Sod (Zosyn Per Pharmacy) 1 each PRN DAILY PRN MC SEE COMMENTS; Start 07/31/16 at 15:45 Piperacillin Sod/ Tazobactam Sod 3.375 gm/Sodium Chloride 50 ml @ 100 mls/hr 1X ONCE IV Last administered on 07/31/16 16:00; Start 07/31/16 at 16:00; Stop 07/31/16 at 16:30; Status DC Allopurinol (Zyloprim) 100 mg DAILY PO Last administered on 08/01/16 08:54; Start 08/01/16 at 09:00 Aspirin (Ecotrin) 81 mg DAILY PO Last administered on 08/01/16 08:54; Start 08/01/16 at 09:00 Atorvastatin Calcium (Lipitor) 20 mg HS PO Last administered on 07/31/16 20:49 ; Start 07/31/16 at 21:00 Diltiazem HCl (Cardizem 24hr Cd) 180 mg DAILY PO ; Start 08/01/16 at 09:00; Stop 08/01/16 at 09:00; Status DC Finasteride (Proscar) 5 mg DAILY PO Last administered on 08/01/16 08:55; Start 08/01/16 at 09:00 Furosemide (Lasix) 60 mg [id number] PO Last administered on 08/01/16 08:55; Start at 09:00 Lisinopril (Prinivil) 20 mg DAILY PO Last administered on 08/01/16 08:51; Start 08/01/16 at 09:00 Magnesium Oxide (Magnesium Oxide) 400 mg DAILY PO ; Start 08/01/16 at 09:00; Stop 08/01/16 at 09:00; Status DC Metoprolol Tartrate (Lopressor) 12.5 mg BID PO Last administered on 08/01/16 08 :54; Start 07/31/16 at 21:00 Sennosides (Senna) 8.6 mg PRN BID PRN PO CONSTIPATION, 1ST CHOICE; Start at 16:30 Warfarin Sodium (Coumadin) 5 mg DAILY16 PO ; Start 08/01/16 at 16:00; Stop at 16:00; Status DC Pantoprazole Sodium (Protonix) 40 mg DAILYAC PO Last administered on 08/01/16 06:05; Start 08/01/16 at 07:30 Non-Formulary Medication 1 cap DAILY IH ; Start 08/01/16 at 09:00; Stop 08/01/16 at 09:00; Status DC Piperacillin Sod/ Tazobactam Sod 2.25 gm/Sodium Chloride 50 ml @ 100 mls/hr Q6HRS IV Last administered on 08/01/16 05:17; Start 07/31/16 at 23:00 Albuterol/ Ipratropium (Duoneb) 3 ml RTQID NEB Last administered on 08/01/16 11 :35; Start 07/31/16 at 17:00 Warfarin Sodium (Coumadin Per Physician) 1 each PRN DAILY PRN [facility] SEE COMMENTS; Start 07/31/16 at 16:45; Stop 07/31/16 at 21:14; Status DC Warfarin Sodium (Coumadin Per Pharmacy) 1 each PRN DAILY PRN MC SEE COMMENTS Last administered on 07/31/16 22:08; Start 07/31/16 at 21:00 Info (Anti-Coagulation Monitoring By Pharmacy) 1 each PRN DAILY PRN MC SEE COMMENTS; Start 07/31/16 at 21:30 Active Scripts Active Metoprolol Tartrate 25 Mg Tablet 12.5 Mg PO BID Senna (Sennosides) 8.6 Mg Tablet 8.6 Mg PO PRN BID PRN Furosemide 20 Mg Tablet 60 Mg PO [id number] Reported Furosemide 20 Mg Tablet 20 Mg PO BID Coumadin (Warfarin Sodium) 7.5 Mg Tablet 1 Tab PO DAILY PRN Coumadin (Warfarin Sodium) 5 Mg Tablet 1 Tab PO DAILY PRN Dexilant (Dexlansoprazole) 60 Mg Cap.mp 1 Cap PO DAILY Spiriva (Tiotropium [place]) 18 Mcg Cap.w.dev 1 Cap IH DAILY Warfarin Sodium 5 Mg Tablet 5 Mg PO DAILY Lisinopril 20 Mg Tablet 1 Tab PO DAILY Indication: blood pressure Next dose: 05/09/14 am Proscar (Finasteride) 5 Mg Tablet 1 Tab PO DAILY Indication: prostate Next dose; 05/09/14 am Atorvastatin Calcium 20 Mg Tablet 20 Mg PO HS Indication: cholesterol Next dose; 05/09/14 bedtime Aspirin Ec (Aspirin) 81 Mg Tablet. 1 Tab PO DAILY Indication: heart/blood thinner Next dose: 05/09/14 am Allopurinol 100 Mg Tablet 100 Mg PO DAILY Vitals/I & O Vital Sign - Last 24 Hours 07/31/16 07/31/16 07/31/16 07/31/16 14:08 15:47 17:47 19:00 Temp 98.3 98.0 98.3 98.0 Pulse 79 72 68 Resp 22 20 22 B/P (MAP) 164/82 (109) 149/62 (91) Pulse Ox 99 100 98 O2 Delivery Room Air Room Air Room Air Room Air 07/31/16 07/31/16 07/31/16 07/31/16 19:00 20:00 20:20 20:49 Temp 97.5 97.5 Pulse 59 59 Resp 20 B/P (MAP) 177/57 (97) 177/57 Pulse Ox 93 99 O2 Delivery Room Air Room Air Room Air 07/31/16 08/01/16 08/01/16 08/01/16 23:00 07:00 07:31 08:00 Temp 98.1 97.8 98.1 97.8 Pulse 86 68 Resp 20 20 B/P (MAP) 114/62 (79) 124/68 (86) Pulse Ox 94 98 99 O2 Delivery Room Air Room Air Room Air Room Air 08/01/16 08/01/16 08/01/16 08/01/16 08:51 08:54 11:00 11:39 Temp 97.2 97.2 Pulse 76 76 66 Resp 24 B/P (MAP) 117/64 117/64 152/63 (92) Pulse Ox 96 O2 Delivery Room Air Intake and Output 07/31/16 07/31/16 08/01/16 15:00 23:00 07:00 Intake Total 1710 ml 680 ml Output Total 700 ml 2103 ml Balance 1010 ml -1423 ml LALY VASQUEZ MD August 01, 2016 11:44
--- NOTE | 2016-08-01 11:56 | PDOC ---
PROGRESS NOTES Chief Complaint Chief Complaint 1. Intermittent self caths 2. COmplicated UTI 3. 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 Mild to mod PCM 5. LOng toe nails History of Present Illness History of Present Illness Creatinine stable at 2 plus Seen with urology at bedside Pt denies UTI sxs Pt says he ran out of sterile foleys he self caths at home Urology recommends new foleys qdaily (as oppsoed to just washing them) Pt gets upset when we talk about his insurance company thats why he ran out of clean foleys PLAn: US renals r.o pathology - per urology Keep martin on DC (could be mariusz pending urine cx and US renals) and ff up Dr. Eckert (his own urologist) REsume home lasix 20 BID - dw RN Dw Dr. garcia and pt at bedside Vitals Vitals Vital Signs Date Time Temp Pulse Resp B/P (MAP) Pulse Ox O2 Delivery O2 Flow Rate FiO2 08/01/16 11:39 Room Air 08/01/16 11:00 97.2 66 24 152/63 (92) 96 97.2 Physical Exam General: Alert, Oriented X3, Cooperative, No acute distress Lungs: Other Abdomen: Soft Extremities: No cyanosis, No edema Skin: No significant lesion Labs LABS Laboratory Tests Test 07/31/16 14:00 07/31/16 14:50 07/31/16 15:40 08/01/16 04:45 Urine Collection Type Unknown Urine Color Yellow Urine Clarity Cloudy Urine pH 6.0 Urine Specific [place] 1.010 Urine Protein 30 mg/dL (NEG-TRACE) Urine Glucose (UA) Negative mg/dL (NEG) Urine Ketones (Stick) Negative mg/dL (NEG) Urine Blood Large (NEG) Urine Nitrite Positive (NEG) Urine Bilirubin Negative (NEG) Urine Urobilinogen Dipstick 1.0 mg/dL (0.2 mg/dL) Urine Leukocyte Esterase Large (NEG) Urine RBC >40 /HPF (0-2) Urine WBC >40 /HPF (0-4) Urine Squamous Epithelial Cells Occ /LPF Urine Bacteria Many /HPF (0-FEW) Urine Mucus Mod /LPF Prothrombin Time 34.9 SEC (11.7-14.0) 34.1 SEC (11.7-14.0) Prothromb Time International Ratio 3.8 (0.8-1.1) 3.7 (0.8-1.1) White Blood Count 6.1 x10^3/uL (4.0-11.0) 6.4 x10^3/uL (4.0-11.0) Red Blood Count 3.49 x10^6/uL (4.30-5.70) 3.17 x10^6/uL (4.30-5.70) Hemoglobin 11.1 g/dL (13.0-17.5) 10.2 g/dL (13.0-17.5) Hematocrit 32.1 % (39.0-53.0) 29.7 % (39.0-53.0) Mean Corpuscular Volume 92 fL (79-100) 94 fL (79-100) Mean Corpuscular Hemoglobin 32 pg (25-35) 32 pg (25-35) Mean Corpuscular Hemoglobin Concent 35 g/dL (31-37) 34 g/dL (31-37) Red Cell Distribution Width 15.7 % (11.5-14.5) 15.6 % (11.5-14.5) Platelet Count 137 x10^3/uL (140-400) 103 x10^3/uL (140-400) Neutrophils (%) (Auto) 63 % (31-73) 64 % (31-73) Lymphocytes (%) (Auto) 25 % (24-48) 23 % (24-48) Monocytes (%) (Auto) 9 % (0-9) 9 % (0-9) Eosinophils (%) (Auto) 3 % (0-3) 4 % (0-3) Basophils (%) (Auto) 1 % (0-3) 0 % (0-3) Neutrophils # (Auto) 3.8 x10^3uL (1.8-7.7) 4.1 x10^3uL (1.8-7.7) Lymphocytes # (Auto) 1.5 x10^3/uL (1.0-4.8) 1.5 x10^3/uL (1.0-4.8) Monocytes # (Auto) 0.5 x10^3/uL (0.0-1.1) 0.5 x10^3/uL (0.0-1.1) Eosinophils # (Auto) 0.2 x10^3/uL (0.0-0.7) 0.2 x10^3/uL (0.0-0.7) Basophils # (Auto) 0.0 x10^3/uL (0.0-0.2) 0.0 x10^3/uL (0.0-0.2) Sodium Level 134 mmol/L (136-145) 137 mmol/L (136-145) Potassium Level 5.3 mmol/L (3.5-5.1) 5.0 mmol/L (3.5-5.1) Chloride Level 101 mmol/L (98-107) 106 mmol/L (98-107) Carbon Dioxide Level 26 mmol/L (21-32) 25 mmol/L (21-32) Anion Gap 7 (6-14) 6 (6-14) Blood Urea Nitrogen 46 mg/dL (8-26) 43 mg/dL (8-26) Creatinine 2.4 mg/dL (0.7-1.3) 2.4 mg/dL (0.7-1.3) Estimated GFR (Cockcroft-Gault) 26.4 26.4 BUN/Creatinine Ratio 19 (6-20) 18 (6-20) Glucose Level 99 mg/dL (70-99) 100 mg/dL (70-99) Calcium Level 8.4 mg/dL (8.5-10.1) 7.9 mg/dL (8.5-10.1) Total Bilirubin 0.8 mg/dL (0.2-1.0) 0.8 mg/dL (0.2-1.0) Aspartate Amino Transf (AST/SGOT) 26 U/L (15-37) 23 U/L (15-37) Alanine Aminotransferase (ALT/SGPT) 27 U/L (16-63) 23 U/L (16-63) Alkaline Phosphatase 95 U/L (46-116) 80 U/L (46-116) Total Protein 7.5 g/dL (6.4-8.2) 6.6 g/dL (6.4-8.2) Albumin 3.5 g/dL (3.4-5.0) 3.1 g/dL (3.4-5.0) Albumin/Globulin Ratio 0.9 (1.0-1.7) 0.9 (1.0-1.7) Review of Systems Review of Systems denies all 14 pt systems Assessment and Plan Assessmemt and Plan Problems Medical Problems: (1) UTI (lower urinary tract infection) Status: Acute (2) Warfarin-induced coagulopathy Status: Acute Problems: Comment Review of Relevant I have reviewed the following items emile (where applicable) has been applied. Labs Laboratory Tests Test 07/31/16 14:00 07/31/16 14:50 07/31/16 15:40 08/01/16 04:45 Urine Collection Type Unknown Urine Color Yellow Urine Clarity Cloudy Urine pH 6.0 Urine Specific [place] 1.010 Urine Protein 30 mg/dL (NEG-TRACE) Urine Glucose (UA) Negative mg/dL (NEG) Urine Ketones (Stick) Negative mg/dL (NEG) Urine Blood Large (NEG) Urine Nitrite Positive (NEG) Urine Bilirubin Negative (NEG) Urine Urobilinogen Dipstick 1.0 mg/dL (0.2 mg/dL) Urine Leukocyte Esterase Large (NEG) Urine RBC >40 /HPF (0-2) Urine WBC >40 /HPF (0-4) Urine Squamous Epithelial Cells Occ /LPF Urine Bacteria Many /HPF (0-FEW) Urine Mucus Mod /LPF Prothrombin Time 34.9 SEC (11.7-14.0) 34.1 SEC (11.7-14.0) Prothromb Time International Ratio 3.8 (0.8-1.1) 3.7 (0.8-1.1) White Blood Count 6.1 x10^3/uL (4.0-11.0) 6.4 x10^3/uL (4.0-11.0) Red Blood Count 3.49 x10^6/uL (4.30-5.70) 3.17 x10^6/uL (4.30-5.70) Hemoglobin 11.1 g/dL (13.0-17.5) 10.2 g/dL (13.0-17.5) Hematocrit 32.1 % (39.0-53.0) 29.7 % (39.0-53.0) Mean Corpuscular Volume 92 fL (79-100) 94 fL (79-100) Mean Corpuscular Hemoglobin 32 pg (25-35) 32 pg (25-35) Mean Corpuscular Hemoglobin Concent 35 g/dL (31-37) 34 g/dL (31-37) Red Cell Distribution Width 15.7 % (11.5-14.5) 15.6 % (11.5-14.5) Platelet Count 137 x10^3/uL (140-400) 103 x10^3/uL (140-400) Neutrophils (%) (Auto) 63 % (31-73) 64 % (31-73) Lymphocytes (%) (Auto) 25 % (24-48) 23 % (24-48) Monocytes (%) (Auto) 9 % (0-9) 9 % (0-9) Eosinophils (%) (Auto) 3 % (0-3) 4 % (0-3) Basophils (%) (Auto) 1 % (0-3) 0 % (0-3) Neutrophils # (Auto) 3.8 x10^3uL (1.8-7.7) 4.1 x10^3uL (1.8-7.7) Lymphocytes # (Auto) 1.5 x10^3/uL (1.0-4.8) 1.5 x10^3/uL (1.0-4.8) Monocytes # (Auto) 0.5 x10^3/uL (0.0-1.1) 0.5 x10^3/uL (0.0-1.1) Eosinophils # (Auto) 0.2 x10^3/uL (0.0-0.7) 0.2 x10^3/uL (0.0-0.7) Basophils # (Auto) 0.0 x10^3/uL (0.0-0.2) 0.0 x10^3/uL (0.0-0.2) Sodium Level 134 mmol/L (136-145) 137 mmol/L (136-145) Potassium Level 5.3 mmol/L (3.5-5.1) 5.0 mmol/L (3.5-5.1) Chloride Level 101 mmol/L (98-107) 106 mmol/L (98-107) Carbon Dioxide Level 26 mmol/L (21-32) 25 mmol/L (21-32) Anion Gap 7 (6-14) 6 (6-14) Blood Urea Nitrogen 46 mg/dL (8-26) 43 mg/dL (8-26) Creatinine 2.4 mg/dL (0.7-1.3) 2.4 mg/dL (0.7-1.3) Estimated GFR (Cockcroft-Gault) 26.4 26.4 BUN/Creatinine Ratio 19 (6-20) 18 (6-20) Glucose Level 99 mg/dL (70-99) 100 mg/dL (70-99) Calcium Level 8.4 mg/dL (8.5-10.1) 7.9 mg/dL (8.5-10.1) Total Bilirubin 0.8 mg/dL (0.2-1.0) 0.8 mg/dL (0.2-1.0) Aspartate Amino Transf (AST/SGOT) 26 U/L (15-37) 23 U/L (15-37) Alanine Aminotransferase (ALT/SGPT) 27 U/L (16-63) 23 U/L (16-63) Alkaline Phosphatase 95 U/L (46-116) 80 U/L (46-116) Total Protein 7.5 g/dL (6.4-8.2) 6.6 g/dL (6.4-8.2) Albumin 3.5 g/dL (3.4-5.0) 3.1 g/dL (3.4-5.0) Albumin/Globulin Ratio 0.9 (1.0-1.7) 0.9 (1.0-1.7) Laboratory Tests Test 07/31/16 14:00 07/31/16 14:50 07/31/16 15:40 08/01/16 04:45 Urine Collection Type Unknown Urine Color Yellow Urine Clarity Cloudy Urine pH 6.0 Urine Specific [place] 1.010 Urine Protein 30 mg/dL (NEG-TRACE) Urine Glucose (UA) Negative mg/dL (NEG) Urine Ketones (Stick) Negative mg/dL (NEG) Urine Blood Large (NEG) Urine Nitrite Positive (NEG) Urine Bilirubin Negative (NEG) Urine Urobilinogen Dipstick 1.0 mg/dL (0.2 mg/dL) Urine Leukocyte Esterase Large (NEG) Urine RBC >40 /HPF (0-2) Urine WBC >40 /HPF (0-4) Urine Squamous Epithelial Cells Occ /LPF Urine Bacteria Many /HPF (0-FEW) Urine Mucus Mod /LPF Prothrombin Time 34.9 SEC (11.7-14.0) 34.1 SEC (11.7-14.0) Prothromb Time International Ratio 3.8 (0.8-1.1) 3.7 (0.8-1.1) White Blood Count 6.1 x10^3/uL (4.0-11.0) 6.4 x10^3/uL (4.0-11.0) Red Blood Count 3.49 x10^6/uL (4.30-5.70) 3.17 x10^6/uL (4.30-5.70) Hemoglobin 11.1 g/dL (13.0-17.5) 10.2 g/dL (13.0-17.5) Hematocrit 32.1 % (39.0-53.0) 29.7 % (39.0-53.0) Mean Corpuscular Volume 92 fL (79-100) 94 fL (79-100) Mean Corpuscular Hemoglobin 32 pg (25-35) 32 pg (25-35) Mean Corpuscular Hemoglobin Concent 35 g/dL (31-37) 34 g/dL (31-37) Red Cell Distribution Width 15.7 % (11.5-14.5) 15.6 % (11.5-14.5) Platelet Count 137 x10^3/uL (140-400) 103 x10^3/uL (140-400) Neutrophils (%) (Auto) 63 % (31-73) 64 % (31-73) Lymphocytes (%) (Auto) 25 % (24-48) 23 % (24-48) Monocytes (%) (Auto) 9 % (0-9) 9 % (0-9) Eosinophils (%) (Auto) 3 % (0-3) 4 % (0-3) Basophils (%) (Auto) 1 % (0-3) 0 % (0-3) Neutrophils # (Auto) 3.8 x10^3uL (1.8-7.7) 4.1 x10^3uL (1.8-7.7) Lymphocytes # (Auto) 1.5 x10^3/uL (1.0-4.8) 1.5 x10^3/uL (1.0-4.8) Monocytes # (Auto) 0.5 x10^3/uL (0.0-1.1) 0.5 x10^3/uL (0.0-1.1) Eosinophils # (Auto) 0.2 x10^3/uL (0.0-0.7) 0.2 x10^3/uL (0.0-0.7) Basophils # (Auto) 0.0 x10^3/uL (0.0-0.2) 0.0 x10^3/uL (0.0-0.2) Sodium Level 134 mmol/L (136-145) 137 mmol/L (136-145) Potassium Level 5.3 mmol/L (3.5-5.1) 5.0 mmol/L (3.5-5.1) Chloride Level 101 mmol/L (98-107) 106 mmol/L (98-107) Carbon Dioxide Level 26 mmol/L (21-32) 25 mmol/L (21-32) Anion Gap 7 (6-14) 6 (6-14) Blood Urea Nitrogen 46 mg/dL (8-26) 43 mg/dL (8-26) Creatinine 2.4 mg/dL (0.7-1.3) 2.4 mg/dL (0.7-1.3) Estimated GFR (Cockcroft-Gault) 26.4 26.4 BUN/Creatinine Ratio 19 (6-20) 18 (6-20) Glucose Level 99 mg/dL (70-99) 100 mg/dL (70-99) Calcium Level 8.4 mg/dL (8.5-10.1) 7.9 mg/dL (8.5-10.1) Total Bilirubin 0.8 mg/dL (0.2-1.0) 0.8 mg/dL (0.2-1.0) Aspartate Amino Transf (AST/SGOT) 26 U/L (15-37) 23 U/L (15-37) Alanine Aminotransferase (ALT/SGPT) 27 U/L (16-63) 23 U/L (16-63) Alkaline Phosphatase 95 U/L (46-116) 80 U/L (46-116) Total Protein 7.5 g/dL (6.4-8.2) 6.6 g/dL (6.4-8.2) Albumin 3.5 g/dL (3.4-5.0) 3.1 g/dL (3.4-5.0) Albumin/Globulin Ratio 0.9 (1.0-1.7) 0.9 (1.0-1.7) Medications Current Medications Sodium Chloride 1,000 ml @ 1,000 mls/hr Q1H IV Last administered on 07/31/16 15:46; Start 07/31/16 at 15:30; Stop 07/31/16 at 16:30; Status DC Ondansetron HCl (Zofran) 4 mg PRN Q8HRS PRN IV NAUSEA/VOMITING; Start 07/31/16 at 15:45; Stop 08/01/16 at 15:44 Sodium Chloride 1,000 ml @ 100 mls/hr Q10H IV Last administered on 08/01/16 05 :17; Start 07/31/16 at 15:36; Stop 08/01/16 at 15:35 Acetaminophen (Tylenol) 650 mg PRN Q4HRS PRN PO FEVER; Start 07/31/16 at 15:45; Stop 08/01/16 at 15:44 Piperacillin Sod/ Tazobactam Sod (Zosyn Per Pharmacy) 1 each PRN DAILY PRN MC SEE COMMENTS; Start 07/31/16 at 15:45 Piperacillin Sod/ Tazobactam Sod 3.375 gm/Sodium Chloride 50 ml @ 100 mls/hr 1X ONCE IV Last administered on 07/31/16 16:00; Start 07/31/16 at 16:00; Stop 07/31/16 at 16:30; Status DC Allopurinol (Zyloprim) 100 mg DAILY PO Last administered on 08/01/16 08:54; Start 08/01/16 at 09:00 Aspirin (Ecotrin) 81 mg DAILY PO Last administered on 08/01/16 08:54; Start 08/01/16 at 09:00 Atorvastatin Calcium (Lipitor) 20 mg HS PO Last administered on 07/31/16 20:49 ; Start 07/31/16 at 21:00 Diltiazem HCl (Cardizem 24hr Cd) 180 mg DAILY PO ; Start 08/01/16 at 09:00; Stop 08/01/16 at 09:00; Status DC Finasteride (Proscar) 5 mg DAILY PO Last administered on 08/01/16 08:55; Start 08/01/16 at 09:00 Furosemide (Lasix) 60 mg BID92 PO Last administered on 08/01/16 08:55; Start at 09:00 Lisinopril (Prinivil) 20 mg DAILY PO Last administered on 08/01/16 08:51; Start 08/01/16 at 09:00 Magnesium Oxide (Magnesium Oxide) 400 mg DAILY PO ; Start 08/01/16 at 09:00; Stop 08/01/16 at 09:00; Status DC Metoprolol Tartrate (Lopressor) 12.5 mg BID PO Last administered on 08/01/16 08 :54; Start 07/31/16 at 21:00 Sennosides (Senna) 8.6 mg PRN BID PRN PO CONSTIPATION, 1ST CHOICE; Start at 16:30 Warfarin Sodium (Coumadin) 5 mg DAILY16 PO ; Start 08/01/16 at 16:00; Stop at 16:00; Status DC Pantoprazole Sodium (Protonix) 40 mg DAILYAC PO Last administered on 08/01/16 06:05; Start 08/01/16 at 07:30 Non-Formulary Medication 1 cap DAILY IH ; Start 08/01/16 at 09:00; Stop 08/01/16 at 09:00; Status DC Piperacillin Sod/ Tazobactam Sod 2.25 gm/Sodium Chloride 50 ml @ 100 mls/hr Q6HRS IV Last administered on 08/01/16 05:17; Start 07/31/16 at 23:00 Albuterol/ Ipratropium (Duoneb) 3 ml RTQID NEB Last administered on 08/01/16 11 :35; Start 07/31/16 at 17:00 Warfarin Sodium (Coumadin Per Physician) 1 each PRN DAILY PRN MC SEE COMMENTS; Start 07/31/16 at 16:45; Stop 07/31/16 at 21:14; Status DC Warfarin Sodium (Coumadin Per Pharmacy) 1 each PRN DAILY PRN MC SEE COMMENTS Last administered on 07/31/16t 22:08; Start 07/31/16 at 21:00 Info (Anti-Coagulation Monitoring By Pharmacy) 1 each PRN DAILY PRN MC SEE COMMENTS; Start 07/31/16 at 21:30 Active Scripts Active Metoprolol Tartrate 25 Mg Tablet 12.5 Mg PO BID Senna (Sennosides) 8.6 Mg Tablet 8.6 Mg PO PRN BID PRN Furosemide 20 Mg Tablet 60 Mg PO [id number] Reported Furosemide 20 Mg Tablet 20 Mg PO BID Coumadin (Warfarin Sodium) 7.5 Mg Tablet 1 Tab PO DAILY PRN Coumadin (Warfarin Sodium) 5 Mg Tablet 1 Tab PO DAILY PRN Dexilant (Dexlansoprazole) 60 Mg Cap.mp 1 Cap PO DAILY Spiriva (Tiotropium [place]) 18 Mcg Cap.w.dev 1 Cap IH DAILY Warfarin Sodium 5 Mg Tablet 5 Mg PO DAILY Lisinopril 20 Mg Tablet 1 Tab PO DAILY Indication: blood pressure Next dose: 05/09/14 am Proscar (Finasteride) 5 Mg Tablet 1 Tab PO DAILY Indication: prostate Next dose; 05/09/14 am Atorvastatin Calcium 20 Mg Tablet 20 Mg PO HS Indication: cholesterol Next dose; 05/09/14 bedtime Aspirin Ec (Aspirin) 81 Mg Tablet. 1 Tab PO DAILY Indication: heart/blood thinner Next dose: 05/09/14 am Allopurinol 100 Mg Tablet 100 Mg PO DAILY Vitals/I & O Vital Sign - Last 24 Hours 07/31/16 07/31/16 07/31/16 07/31/16 14:08 15:47 17:47 19:00 Temp 98.3 98.0 98.3 98.0 Pulse 79 72 68 Resp 22 20 22 B/P (MAP) 164/82 (109) 149/62 (91) Pulse Ox 99 100 98 O2 Delivery Room Air Room Air Room Air Room Air 07/31/16 07/31/16 07/31/16 07/31/16 19:00 20:00 20:20 20:49 Temp 97.5 97.5 Pulse 59 59 Resp 20 B/P (MAP) 177/57 (97) 177/57 Pulse Ox 93 99 O2 Delivery Room Air Room Air Room Air 07/31/16 08/01/16 08/01/16 08/01/16 23:00 07:00 07:31 08:00 Temp 98.1 97.8 98.1 97.8 Pulse 86 68 Resp 20 20 B/P (MAP) 114/62 (79) 124/68 (86) Pulse Ox 94 98 99 O2 Delivery Room Air Room Air Room Air Room Air 08/01/16 08/01/16 08/01/16 08/01/16 08:51 08:54 11:00 11:39 Temp 97.2 97.2 Pulse 76 76 66 Resp 24 B/P (MAP) 117/64 117/64 152/63 (92) Pulse Ox 96 O2 Delivery Room Air Intake and Output 07/31/16 07/31/16 08/01/16 15:00 23:00 07:00 Intake Total 1710 ml 680 ml Output Total 700 ml 2103 ml Balance 1010 ml -1423 ml BERTA KNOWLES MD August 01, 2016 11:56
[2016-08-01] MEDS ORDERED: WARFARIN 7.5 MG TABLET. PO PRN (12:00)
[2016-08-01] MEDS ORDERED: WARFARIN 5 MG TABLET. PO PRN (12:00)
--- NOTE | 2016-08-01 14:55 | PDOC ---
Infectious Disease Note Vital Sign Vital Signs Vital Signs Date Time Temp Pulse Resp B/P (MAP) Pulse Ox O2 Delivery O2 Flow Rate FiO2 08/01/16 11:39 Room Air 08/01/16 11:00 97.2 66 24 152/63 (92) 96 97.2 Labs Lab Laboratory Tests Test 07/31/16 14:50 07/31/16 15:40 08/01/16 04:45 Prothrombin Time 34.9 SEC (11.7-14.0) 34.1 SEC (11.7-14.0) Prothromb Time International Ratio 3.8 (0.8-1.1) 3.7 (0.8-1.1) White Blood Count 6.1 x10^3/uL (4.0-11.0) 6.4 x10^3/uL (4.0-11.0) Red Blood Count 3.49 x10^6/uL (4.30-5.70) 3.17 x10^6/uL (4.30-5.70) Hemoglobin 11.1 g/dL (13.0-17.5) 10.2 g/dL (13.0-17.5) Hematocrit 32.1 % (39.0-53.0) 29.7 % (39.0-53.0) Mean Corpuscular Volume 92 fL (79-100) 94 fL (79-100) Mean Corpuscular Hemoglobin 32 pg (25-35) 32 pg (25-35) Mean Corpuscular Hemoglobin Concent 35 g/dL (31-37) 34 g/dL (31-37) Red Cell Distribution Width 15.7 % (11.5-14.5) 15.6 % (11.5-14.5) Platelet Count 137 x10^3/uL (140-400) 103 x10^3/uL (140-400) Neutrophils (%) (Auto) 63 % (31-73) 64 % (31-73) Lymphocytes (%) (Auto) 25 % (24-48) 23 % (24-48) Monocytes (%) (Auto) 9 % (0-9) 9 % (0-9) Eosinophils (%) (Auto) 3 % (0-3) 4 % (0-3) Basophils (%) (Auto) 1 % (0-3) 0 % (0-3) Neutrophils # (Auto) 3.8 x10^3uL (1.8-7.7) 4.1 x10^3uL (1.8-7.7) Lymphocytes # (Auto) 1.5 x10^3/uL (1.0-4.8) 1.5 x10^3/uL (1.0-4.8) Monocytes # (Auto) 0.5 x10^3/uL (0.0-1.1) 0.5 x10^3/uL (0.0-1.1) Eosinophils # (Auto) 0.2 x10^3/uL (0.0-0.7) 0.2 x10^3/uL (0.0-0.7) Basophils # (Auto) 0.0 x10^3/uL (0.0-0.2) 0.0 x10^3/uL (0.0-0.2) Sodium Level 134 mmol/L (136-145) 137 mmol/L (136-145) Potassium Level 5.3 mmol/L (3.5-5.1) 5.0 mmol/L (3.5-5.1) Chloride Level 101 mmol/L (98-107) 106 mmol/L (98-107) Carbon Dioxide Level 26 mmol/L (21-32) 25 mmol/L (21-32) Anion Gap 7 (6-14) 6 (6-14) Blood Urea Nitrogen 46 mg/dL (8-26) 43 mg/dL (8-26) Creatinine 2.4 mg/dL (0.7-1.3) 2.4 mg/dL (0.7-1.3) Estimated GFR (Cockcroft-Gault) 26.4 26.4 BUN/Creatinine Ratio 19 (6-20) 18 (6-20) Glucose Level 99 mg/dL (70-99) 100 mg/dL (70-99) Calcium Level 8.4 mg/dL (8.5-10.1) 7.9 mg/dL (8.5-10.1) Total Bilirubin 0.8 mg/dL (0.2-1.0) 0.8 mg/dL (0.2-1.0) Aspartate Amino Transf (AST/SGOT) 26 U/L (15-37) 23 U/L (15-37) Alanine Aminotransferase (ALT/SGPT) 27 U/L (16-63) 23 U/L (16-63) Alkaline Phosphatase 95 U/L (46-116) 80 U/L (46-116) Total Protein 7.5 g/dL (6.4-8.2) 6.6 g/dL (6.4-8.2) Albumin 3.5 g/dL (3.4-5.0) 3.1 g/dL (3.4-5.0) Albumin/Globulin Ratio 0.9 (1.0-1.7) 0.9 (1.0-1.7) Objective Assessment CAUTI. POA -re-uses catheters. -h/o Enterococcus-AmpS & Citrobacter Obstructive uropathy requiring intermittent self-catheterizations Hematuria. clearing Warfarin therapy CKD Plan Plan of Care de-escalate abx soon Await UC Monitor WBC, Cr and temp Thank you [id number] Attending Co-Sign Attending Co-Sign The patient was seen and interviewed as well as examined at the bedside. The chart was reviewed. The case was discussed. Agree with the plan of care. NAN MONTANEZ APRN August 01, 2016 14:55 BJ ADAN MD August 01, 2016 15:06
[2016-08-01 15:00] VITALS: BP 144/0
[2016-08-01] MEDS: FUROSEMIDE 20 MG TABLET PO SCH (15:19)
[2016-08-01] MEDS ORDERED: WARFARIN 5 MG TABLET. PO SCH (16:00)
--- NOTE | 2016-08-01 16:15 | RAD ---
Indication renal failure. Grayscale imaging targeted to the kidneys was performed. Note is made of a similar examination 07/18/2015. Incidental note was made during the examination of cholelithiasis. The right kidney measures approximately 8.2 x 2.8 cm. The kidney is somewhat echogenic compatible with medical renal disease. No hydronephrosis is seen. There is a hypoechoic 1.3 cm mass compatible with a cyst. The prostate is significantly enlarged and the prostatic volume is estimated at approximately 158 cc. The patient has a Watson catheter. The urinary bladder, as a result, is largely collapsed and poorly evaluated with ultrasound. The left kidney measures approximately 12.2 x 5.3 cm. It too is somewhat echogenic suggesting medical renal disease. No hydronephrosis or definite mass is seen. IMPRESSION: Evidence for chronic disease associated with the kidneys right more so than left. No evidence of obstruction. Right renal cyst. Cholelithiasis. Enlarged prostate
--- NOTE | 2016-08-01 16:25 | PDOC2 ---
Consult: RENAL CONSULT / MIGN[place] REASON FOR CONSULTATION: ARF. HISTORY OF PRESENT ILLNESS: This is a 75-year-old Male who came in with 2-day history of dysuria and urgency. Does self catheterize and of recent, due to change of insurance and short supply, has been reusing catheters. Nausea, low grade fevers. No CP or SOA. No chills. Some blood in urine. No other related c/o. Follows with Dr. Decker in our practice. The patient has been admitted from the ER. PAST MEDICAL HISTORY: HTN CKD III ( baseline Cr ? but was 2.3 in March this year also ) UTI BPH with urinary retention. ANEMIA of CKD. No recent major or minor surgeries. SOCIAL HISTORY: No active smoking, no alcohol use or drug use. ALLERGIES: No known drug allergies. CURRENT MEDICATIONS: Reviewed. REVIEW OF SYSTEMS: As per HPI, all other systems reviewed are negative. PHYSICAL EXAMINATION: GENERAL: Alert, oriented male, not in distress. VITAL SIGNS: Stable. Afebrile. HEENT: NAD. NECK: Supple, no JVP, no lymphadenopathy. LUNGS: Clear. HEART: S1, S2 regular. ABDOMEN: Benign. Mild diffuse tenderness present. No rebound or guarding. EXTREMITIES: No edema, cyanosis. SKIN: Unremarkable. NEUROLOGIC: The patient is neurologically intact. LABORATORY DATA: Reviewed. US done. Results pending. A/P : ARF. HTN w CKD CKD III UTI OBSTRUCTIVE UROPATHY. Cr appears close to baseline. IVF. ABX Labs I/Os Supportive care. Check US kidney. Thank you. Edy Crow M.D. EDY CROW MD August 01, 2016 16:25
[2016-08-01 19:00] VITALS: BP 114/57
[2016-08-01] MEDS: ATORVASTATIN CALCIUM 20 MG TABLET PO SCH (20:52)
[2016-08-01 23:00] VITALS: BP 120/53
--- NOTE | 2016-08-01 23:56 | CONS ---
DATE OF CONSULTATION: 08/01/2016 LOCATION: The patient's room is 580. HISTORY OF PRESENT ILLNESS: The patient is a very pleasant 75-year-old white male with history of urinary tract infection. The patient has a history of urinary retention and does intermittent self catheterization and has done so for many years. He is a regular patient of Dr. Ney Eckert, Urology. He states he normally does intermittent catheterization anywhere from 4-6 times a day and up until this year had been using a new catheter each time he catheterize, but then he started reusing catheters this year. The patient's white count currently is 6.4, creatinine is 2.4. Urine on admission had shown nitrite positive, greater than 40 red cells, greater than 40 white cells and many bacteria. The patient is currently on Zosyn. The patient states he has never had any urologic operations. He follows with Dr. Eckert on a regular basis. PHYSICAL EXAMINATION: GENITOURINARY: Testes are descended bilaterally. Phallus is within normal limits. He has Watson to gravity drainage. Urine is grossly clear yellow. RECTAL: Good sphincter tone. Prostate smooth, nontender, without nodules, overall size 50 grams by palpation. The patient with 2800 mL of urine output over the past 24 hours. ASSESSMENT: Urinary tract infection and renal failure and urinary retention. PLAN: Would keep Watson catheter in place for now. We will also get a renal bladder ultrasound and consult Nephrology and also ID and then have the patient follow up with his regular urologist, Dr. Eckert in the next week or two. I certainly appreciate being allowed to participate in this patient's care. LALY VASQUEZ MD DR: IOANA/scott JOB#: [id number] / [id number]
[2016-08-02 03:00] VITALS: BP 125/59
[2016-08-02 04:10] LABS: PROTHROMBIN TIME PATIENT 29.3 SEC (11.7-14.0)
[2016-08-02 04:18] LABS: CALCIUM 7.9 mg/dL (8.5-10.1); CREATININE 2.4 mg/dL (0.7-1.3); GFR 26.4; POTASSIUM 4.7 mmol/L (3.5-5.1)
[2016-08-02] MEDS: PIPERACILLIN/TAZOBACTAM 2.25 GM in IV NORMAL SALINE 50ML 50 ML IV SCH ×4 (05:24→23:34)
[2016-08-02] MEDS: PANTOPRAZOLE 40 MG TABLET.DR. PO SCH (05:24)
[2016-08-02 07:35] VITALS: BP 134/67
[2016-08-02] MEDS: IPRATRPIUM/ALBUTEROL 0.5/2.5MG 3 ML NEBU. NEB SCH ×4 (07:40→19:29)
[2016-08-02] MEDS: FUROSEMIDE 20 MG TABLET PO SCH ×2 (09:00→14:00)
--- NOTE | 2016-08-02 09:20 | PDOC ---
Infectious Disease Note Subjective Subjective Doing well . No complaints ROS ROS GEN: Denies fevers, chills, sweats HEENT: Denies blurred vision, sore throat CV: Denies chest pain RESP: Denies shortness of air, cough GI: Denies n/v/d NEURO: Denies confusion, dizziness MSK: Denies weakness, joint pain/swelling Vital Sign Vital Signs Vital Signs Date Time Temp Pulse Resp B/P (MAP) Pulse Ox O2 Delivery O2 Flow Rate FiO2 08/02/16 07:41 95 Room Air 08/02/16 07:35 97.8 88 17 134/67 (89) 97.8 Physical Exam PHYSICAL EXAM GENERAL: NAD, Alert, in chair HEENT: PERRL, OC/OP- clear. lacking teeth NECK: Supple, no JVD, no LN LUNGS: Clear HEART: S1S2, no gallop, no murmur ABD: Soft, NT, no organomegaly, no rebound Watson EXT: No edema, no cyanosis [employer]PER[employer]OR TELE[employer] ANSWERING SERVICE: Alert, oriented x 3, no focal neurologic deficit SKIN: No rash IV: ok Labs Lab Laboratory Tests Test 08/02/16 02:50 Prothrombin Time 29.3 SEC (11.7-14.0) Prothromb Time International Ratio 3.0 (0.8-1.1) Sodium Level 142 mmol/L (136-145) Potassium Level 4.7 mmol/L (3.5-5.1) Chloride Level 109 mmol/L (98-107) Carbon Dioxide Level 24 mmol/L (21-32) Anion Gap 9 (6-14) Blood Urea Nitrogen 36 mg/dL (8-26) Creatinine 2.4 mg/dL (0.7-1.3) Estimated GFR (Cockcroft-Gault) 26.4 Glucose Level 111 mg/dL (70-99) Calcium Level 7.9 mg/dL (8.5-10.1) Objective Assessment CAUTI. POA GNR -re-uses catheters. -h/o Enterococcus-AmpS & Citrobacter Obstructive uropathy requiring intermittent self-catheterizations Hematuria. clearing Warfarin therapy CKD Plan Plan of Care de-escalate abx soon Await UC and sensitivity Monitor WBC, Cr and temp BJ ADAN MD August 02, 2016 09:20
[2016-08-02] MEDS: FINASTERIDE 5 MG TABLET. PO SCH (09:52)
[2016-08-02] MEDS: METOPROLOL TART IMMED RELEASE 25 MG TABLET. PO SCH ×2 (09:52→21:27)
[2016-08-02] MEDS: ALLOPURINOL 100 MG TABLET. PO SCH (09:52)
[2016-08-02] MEDS: ASPIRIN ENTERIC COATED 81 MG TABLET.DR. PO SCH (09:52)
[2016-08-02] MEDS: LISINOPRIL 20 MG TABLET PO SCH (09:53)
--- NOTE | 2016-08-02 10:07 | PDOC ---
PROGRESS NOTES Chief Complaint Chief Complaint CC: UTI CAUTI Obstructive uropathy ISABEL HTN AFIB PLAN IV abx per ID recommendations Pharmacy to dose Coumadin INR 2-3 Keep martin, Out pt follow up [facility]. labs reviewed. continue current management. History of Present Illness History of Present Illness no fever no chills doing better no acute events. Vitals Vitals Vital Signs Date Time Temp Pulse Resp B/P (MAP) Pulse Ox O2 Delivery O2 Flow Rate FiO2 08/02/16 09:53 88 134/67 08/02/16 07:41 95 Room Air 08/02/16 07:35 97.8 17 97.8 Physical Exam General: Alert, Oriented X3, Cooperative, No acute distress Lungs: Clear, Other Abdomen: Normal bowel sounds, Soft Extremities: No cyanosis, No edema Skin: No significant lesion Labs LABS Laboratory Tests Test 08/02/16 02:50 Prothrombin Time 29.3 SEC (11.7-14.0) Prothromb Time International Ratio 3.0 (0.8-1.1) Sodium Level 142 mmol/L (136-145) Potassium Level 4.7 mmol/L (3.5-5.1) Chloride Level 109 mmol/L (98-107) Carbon Dioxide Level 24 mmol/L (21-32) Anion Gap 9 (6-14) Blood Urea Nitrogen 36 mg/dL (8-26) Creatinine 2.4 mg/dL (0.7-1.3) Estimated GFR (Cockcroft-Gault) 26.4 Glucose Level 111 mg/dL (70-99) Calcium Level 7.9 mg/dL (8.5-10.1) Assessment and Plan Assessmemt and Plan Problems Medical Problems: (1) UTI (lower urinary tract infection) Status: Acute (2) Warfarin-induced coagulopathy Status: Acute Problems: Comment Review of Relevant I have reviewed the following items emile (where applicable) has been applied. Labs Laboratory Tests Test 07/31/16 14:00 07/31/16 14:50 07/31/16 15:40 08/01/16 04:45 Urine Collection Type Unknown Urine Color Yellow Urine Clarity Cloudy Urine pH 6.0 Urine Specific [place] 1.010 Urine Protein 30 mg/dL (NEG-TRACE) Urine Glucose (UA) Negative mg/dL (NEG) Urine Ketones (Stick) Negative mg/dL (NEG) Urine Blood Large (NEG) Urine Nitrite Positive (NEG) Urine Bilirubin Negative (NEG) Urine Urobilinogen Dipstick 1.0 mg/dL (0.2 mg/dL) Urine Leukocyte Esterase Large (NEG) Urine RBC >40 /HPF (0-2) Urine WBC >40 /HPF (0-4) Urine Squamous Epithelial Cells Occ /LPF Urine Bacteria Many /HPF (0-FEW) Urine Mucus Mod /LPF Prothrombin Time 34.9 SEC (11.7-14.0) 34.1 SEC (11.7-14.0) Prothromb Time International Ratio 3.8 (0.8-1.1) 3.7 (0.8-1.1) White Blood Count 6.1 x10^3/uL (4.0-11.0) 6.4 x10^3/uL (4.0-11.0) Red Blood Count 3.49 x10^6/uL (4.30-5.70) 3.17 x10^6/uL (4.30-5.70) Hemoglobin 11.1 g/dL (13.0-17.5) 10.2 g/dL (13.0-17.5) Hematocrit 32.1 % (39.0-53.0) 29.7 % (39.0-53.0) Mean Corpuscular Volume 92 fL (79-100) 94 fL (79-100) Mean Corpuscular Hemoglobin 32 pg (25-35) 32 pg (25-35) Mean Corpuscular Hemoglobin Concent 35 g/dL (31-37) 34 g/dL (31-37) Red Cell Distribution Width 15.7 % (11.5-14.5) 15.6 % (11.5-14.5) Platelet Count 137 x10^3/uL (140-400) 103 x10^3/uL (140-400) Neutrophils (%) (Auto) 63 % (31-73) 64 % (31-73) Lymphocytes (%) (Auto) 25 % (24-48) 23 % (24-48) Monocytes (%) (Auto) 9 % (0-9) 9 % (0-9) Eosinophils (%) (Auto) 3 % (0-3) 4 % (0-3) Basophils (%) (Auto) 1 % (0-3) 0 % (0-3) Neutrophils # (Auto) 3.8 x10^3uL (1.8-7.7) 4.1 x10^3uL (1.8-7.7) Lymphocytes # (Auto) 1.5 x10^3/uL (1.0-4.8) 1.5 x10^3/uL (1.0-4.8) Monocytes # (Auto) 0.5 x10^3/uL (0.0-1.1) 0.5 x10^3/uL (0.0-1.1) Eosinophils # (Auto) 0.2 x10^3/uL (0.0-0.7) 0.2 x10^3/uL (0.0-0.7) Basophils # (Auto) 0.0 x10^3/uL (0.0-0.2) 0.0 x10^3/uL (0.0-0.2) Sodium Level 134 mmol/L (136-145) 137 mmol/L (136-145) Potassium Level 5.3 mmol/L (3.5-5.1) 5.0 mmol/L (3.5-5.1) Chloride Level 101 mmol/L (98-107) 106 mmol/L (98-107) Carbon Dioxide Level 26 mmol/L (21-32) 25 mmol/L (21-32) Anion Gap 7 (6-14) 6 (6-14) Blood Urea Nitrogen 46 mg/dL (8-26) 43 mg/dL (8-26) Creatinine 2.4 mg/dL (0.7-1.3) 2.4 mg/dL (0.7-1.3) Estimated GFR (Cockcroft-Gault) 26.4 26.4 BUN/Creatinine Ratio 19 (6-20) 18 (6-20) Glucose Level 99 mg/dL (70-99) 100 mg/dL (70-99) Calcium Level 8.4 mg/dL (8.5-10.1) 7.9 mg/dL (8.5-10.1) Total Bilirubin 0.8 mg/dL (0.2-1.0) 0.8 mg/dL (0.2-1.0) Aspartate Amino Transf (AST/SGOT) 26 U/L (15-37) 23 U/L (15-37) Alanine Aminotransferase (ALT/SGPT) 27 U/L (16-63) 23 U/L (16-63) Alkaline Phosphatase 95 U/L (46-116) 80 U/L (46-116) Total Protein 7.5 g/dL (6.4-8.2) 6.6 g/dL (6.4-8.2) Albumin 3.5 g/dL (3.4-5.0) 3.1 g/dL (3.4-5.0) Albumin/Globulin Ratio 0.9 (1.0-1.7) 0.9 (1.0-1.7) Test 08/02/16 02:50 Prothrombin Time 29.3 SEC (11.7-14.0) Prothromb Time International Ratio 3.0 (0.8-1.1) Sodium Level 142 mmol/L (136-145) Potassium Level 4.7 mmol/L (3.5-5.1) Chloride Level 109 mmol/L (98-107) Carbon Dioxide Level 24 mmol/L (21-32) Anion Gap 9 (6-14) Blood Urea Nitrogen 36 mg/dL (8-26) Creatinine 2.4 mg/dL (0.7-1.3) Estimated GFR (Cockcroft-Gault) 26.4 Glucose Level 111 mg/dL (70-99) Calcium Level 7.9 mg/dL (8.5-10.1) Laboratory Tests Test 08/02/16 02:50 Prothrombin Time 29.3 SEC (11.7-14.0) Prothromb Time International Ratio 3.0 (0.8-1.1) Sodium Level 142 mmol/L (136-145) Potassium Level 4.7 mmol/L (3.5-5.1) Chloride Level 109 mmol/L (98-107) Carbon Dioxide Level 24 mmol/L (21-32) Anion Gap 9 (6-14) Blood Urea Nitrogen 36 mg/dL (8-26) Creatinine 2.4 mg/dL (0.7-1.3) Estimated GFR (Cockcroft-Gault) 26.4 Glucose Level 111 mg/dL (70-99) Calcium Level 7.9 mg/dL (8.5-10.1) Microbiology 5/6/17 Urine Culture - Preliminary, Resulted 07/31/16 Urine Culture Result 1 (RICARDO) - Preliminary, Resulted Medications Current Medications Sodium Chloride 1,000 ml @ 1,000 mls/hr Q1H IV Last administered on 07/31/16 15:46; Start 07/31/16 at 15:30; Stop 07/31/16 at 16:30; Status DC Ondansetron HCl (Zofran) 4 mg PRN Q8HRS PRN IV NAUSEA/VOMITING; Start 07/31/16 at 15:45; Stop 08/01/16 at 15:44; Status DC Sodium Chloride 1,000 ml @ 100 mls/hr Q10H IV Last administered on 08/01/16 15 :20; Start 07/31/16 at 15:36; Stop 08/01/16 at 15:35; Status DC Acetaminophen (Tylenol) 650 mg PRN Q4HRS PRN PO FEVER; Start 07/31/16 at 15:45; Stop 08/01/16 at 15:44; Status DC Piperacillin Sod/ Tazobactam Sod (Zosyn Per Pharmacy) 1 each PRN DAILY PRN MC SEE COMMENTS; Start 07/31/16 at 15:45 Piperacillin Sod/ Tazobactam Sod 3.375 gm/Sodium Chloride 50 ml @ 100 mls/hr 1X ONCE IV Last administered on 07/31/16 16:00; Start 07/31/16 at 16:00; Stop 07/31/16 at 16:30; Status DC Allopurinol (Zyloprim) 100 mg DAILY PO Last administered on 08/02/16 09:52; Start 08/01/16 at 09:00 Aspirin (Ecotrin) 81 mg DAILY PO Last administered on 08/02/16 09:52; Start 08/01/16 at 09:00 Atorvastatin Calcium (Lipitor) 20 mg HS PO Last administered on 08/01/16 20:52 ; Start 07/31/16 at 21:00 Diltiazem HCl (Cardizem 24hr Cd) 180 mg DAILY PO ; Start 08/01/16 at 09:00; Stop 08/01/16 at 09:00; Status DC Finasteride (Proscar) 5 mg DAILY PO Last administered on 08/02/16 09:52; Start 08/01/16 at 09:00 Furosemide (Lasix) 60 mg BID92 PO Last administered on 08/01/16 08:55; Start at 09:00; Stop 08/01/16 at 12:02; Status DC Lisinopril (Prinivil) 20 mg DAILY PO Last administered on 08/02/16 09:53; Start 08/01/16 at 09:00 Magnesium Oxide (Magnesium Oxide) 400 mg DAILY PO ; Start 08/01/16 at 09:00; Stop 08/01/16 at 09:00; Status DC Metoprolol Tartrate (Lopressor) 12.5 mg BID PO Last administered on 08/02/16 09 :52; Start 07/31/16 at 21:00 Sennosides (Senna) 8.6 mg PRN BID PRN PO CONSTIPATION, 1ST CHOICE; Start at 16:30 Warfarin Sodium (Coumadin) 5 mg DAILY16 PO ; Start 08/01/16 at 16:00; Stop at 16:00; Status DC Pantoprazole Sodium (Protonix) 40 mg DAILYAC PO Last administered on 08/02/16 05:24; Start 08/01/16 at 07:30 Non-Formulary Medication 1 cap DAILY IH ; Start 08/01/16 at 09:00; Stop 08/01/16 at 09:00; Status DC Piperacillin Sod/ Tazobactam Sod 2.25 gm/Sodium Chloride 50 ml @ 100 mls/hr Q6HRS IV Last administered on 08/02/16 05:24; Start 07/31/16 at 23:00 Albuterol/ Ipratropium (Duoneb) 3 ml RTQID NEB Last administered on 08/02/16 07 :40; Start 07/31/16 at 17:00 Warfarin Sodium (Coumadin Per Physician) 1 each PRN DAILY PRN MC SEE COMMENTS; Start 07/31/16 at 16:45; Stop 07/31/16 at 21:14; Status DC Warfarin Sodium (Coumadin Per Pharmacy) 1 each PRN DAILY PRN MC SEE COMMENTS Last administered on 08/01/16 14:43; Start 07/31/16 at 21:00 Info (Anti-Coagulation Monitoring By Pharmacy) 1 each PRN DAILY PRN MC SEE COMMENTS; Start 07/31/16 at 21:30 Furosemide (Lasix) 20 mg BID92 PO Last administered on 08/01/16t 15:19; Start at 14:00 Warfarin Sodium (Coumadin) 5 mg DAILY PRN PO SEE COMMENTS; Start 08/01/16 at 12: 00; Status UNV Warfarin Sodium (Coumadin) 7.5 mg DAILY PRN PO SEE COMMENTS; Start 08/01/16 at 12:00; Status UNV Warfarin Sodium (Coumadin - No Dose Today) 1 each 1X WARF ONCE MC ; Start at 16:00; Stop 08/01/16 at 16:01; Status DC Active Scripts Active Metoprolol Tartrate 25 Mg Tablet 12.5 Mg PO BID Senna (Sennosides) 8.6 Mg Tablet 8.6 Mg PO PRN BID PRN Furosemide 20 Mg Tablet 60 Mg PO [id number] Reported Furosemide 20 Mg Tablet 20 Mg PO BID Coumadin (Warfarin Sodium) 7.5 Mg Tablet 1 Tab PO DAILY PRN Coumadin (Warfarin Sodium) 5 Mg Tablet 1 Tab PO DAILY PRN Dexilant (Dexlansoprazole) 60 Mg Cap.mp 1 Cap PO DAILY Spiriva (Tiotropium [place]) 18 Mcg Cap.w.dev 1 Cap IH DAILY Warfarin Sodium 5 Mg Tablet 5 Mg PO DAILY Lisinopril 20 Mg Tablet 1 Tab PO DAILY Indication: blood pressure Next dose: 05/09/14 am Proscar (Finasteride) 5 Mg Tablet 1 Tab PO DAILY Indication: prostate Next dose; 05/09/14 am Atorvastatin Calcium 20 Mg Tablet 20 Mg PO HS Indication: cholesterol Next dose; 05/09/14 bedtime Aspirin Ec (Aspirin) 81 Mg Tablet. 1 Tab PO DAILY Indication: heart/blood thinner Next dose: 05/09/14 am Allopurinol 100 Mg Tablet 100 Mg PO DAILY Vitals/I & O Vital Sign - Last 24 Hours 08/01/16 08/01/16 08/01/16 08/01/16 11:00 11:39 15:00 15:27 Temp 97.2 98.0 97.2 98.0 Pulse 66 68 Resp 24 18 B/P (MAP) 152/63 (92) 144/0 (48) Pulse Ox 96 97 O2 Delivery Room Air Room Air 08/01/16 08/01/16 08/01/16 08/01/16 19:00 20:03 20:13 20:52 Temp 98.1 98.1 Pulse 87 69 Resp 18 B/P (MAP) 114/57 (76) 147/80 Pulse Ox 98 99 O2 Delivery Room Air Room Air Room Air 08/01/16 08/02/16 08/02/16 08/02/16 23:00 03:00 07:35 07:41 Temp 98.4 98.4 97.8 98.4 98.4 97.8 Pulse 82 85 88 Resp 16 16 17 B/P (MAP) 120/53 (75) 125/59 (81) 134/67 (89) Pulse Ox 96 94 100 95 O2 Delivery Room Air Room Air Room Air Room Air 08/02/16 08/02/16 09:52 09:53 Pulse 88 88 B/P (MAP) 134/67 134/67 Intake and Output 08/01/16 08/01/16 08/02/16 14:59 22:59 06:59 Intake Total 650 ml 950 ml 600 ml Output Total 900 ml 900 ml Balance 650 ml 50 ml -300 ml MIGUEL DENTON MD August 02, 2016 10:07
--- NOTE | 2016-08-02 10:53 | CONS ---
DATE OF CONSULTATION: 08/01/2016 REQUESTING PHYSICIAN: Evette Linares MD REASON FOR CONSULTATION: Urinary tract infection. HISTORY OF PRESENT ILLNESS: The patient is a 75-year-old male with a history of hypotonic neurogenic bladder and benign prostate hypertrophy, who presented with one-day history of hematuria. He performs intermittent self catheterization to about 4-5 times a day. Due to insurance reasons, he washes the catheters about once a day with antibacterial dish soap. After finishing catheterization himself, he noticed a small amount of blood in the urine. Urinalysis was positive for more than 40 wbc's, large leukocyte esterase, positive nitrites, many bacteria and occasional squamous epithelial cells with large amount of blood. Urine culture is pending. The patient denies fevers, chills, sweats or lower abdominal or back pain. PAST MEDICAL HISTORY: Urinary tract infections associated with Citrobacter freundii, complex resistant amoxicillin/clavulanic acid, ampicillin/sulbactam, cefazolin, nitrofurantoin intermittent ampicillin, otherwise sensitive; and Enterococcus faecalis, ampicillin sensitive. Hypotonic neurogenic bladder, benign prostate hypertrophy requiring intermittent self-catheterization, chronic kidney disease, hypertension, chronic obstructive pulmonary disease, chronic atrial fibrillation, on warfarin therapy, hyperlipidemia, seizures, hiatal hernia, gout, arthritis and history of colon cancer. PAST SURGICAL HISTORY: Colon resection and tonsillectomy. SOCIAL HISTORY: The patient lives at home with "lady friend." Former smoker. History of heavy alcohol use. He is retired and has automobiles as a hobby. FAMILY HISTORY: Positive for hypertension, cardiovascular disease, stroke, and psoriasis. ALLERGIES: No known drug allergies. CURRENT MEDICATIONS: Piperacillin/tazobactam and warfarin. Other medications are available and have been reviewed on the MAY. REVIEW OF SYSTEMS: The patient is feeling well. He is hoping to return home soon. He denies headache, nasal/sinus congestion or sore throat, denies cough, shortness of air or wheezing, denies chest pain, palpitations or swelling, denies nausea, vomiting or diarrhea, denies rash and denies muscle aches or joint pains. PHYSICAL EXAMINATION: GENERAL: male, sitting in a chair, in no apparent distress. VITAL SIGNS: Afebrile, blood pressure 152/63, heart rate 66, respiratory rate 24, pulse oximetry is 96% on room air. Weight is 211 pounds. HEENT: Pupils equally round, reactive. Normal conjunctivae. He wears eyeglasses. Oral mucosa is pink and moist. Missing teeth. NECK: Supple. LUNGS: Clear to auscultation. HEART: Normal S1, S2. Positive murmur. ABDOMEN: Nondistended. Bowel sounds are present, soft, nontender. GENITOURINARY: He has indwelling Watson in place with cloudy yellow colored urine. EXTREMITIES: No gross edema or cyanosis. SKIN: Without rash. Warm to touch. NEUROLOGIC: Alert and oriented x 3. Moves all extremities. LABORATORY DATA: WBC 6.4, hemoglobin 10.2, and platelet count 103,000. Electrolytes are unremarkable. Creatinine 2.4, BUN 43. Glucose 100. Total bilirubin 0.8, AST 23, ALT 23, albumin 3.1. Urinalysis per HPI. Urine culture pending. Renal ultrasound pending. IMPRESSION: 1. Catheter associated urinary tract infection present on admission. 2. Obstructive uropathy requiring intermittent self-catheterization. 3. Hematuria. 4. Warfarin therapy. 5. Chronic kidney disease. PLAN: Await urine culture results; de-escalate antibiotics soon, monitor ____ count, creatinine and temperature. Supportive care. Thank you Dr. Linares for asking us to participate in this patient's care. Should you have further questions or concerns, please call. BJ ADAN MD DR: CARLOS/scott JOB#: [id number] / [id number]
--- NOTE | 2016-08-02 11:29 | PDOC ---
PROGRESS NOTES Subjective Subjective martin in place Objective Objective Vital Signs Date Time Temp Pulse Resp B/P (MAP) Pulse Ox O2 Delivery O2 Flow Rate FiO2 08/02/16 11:27 Room Air 08/02/16 09:53 88 134/67 08/02/16 07:41 95 08/02/16 07:35 97.8 17 97.8 Intake and Output 08/02/16 07:00 Intake Total 2200 ml Output Total 1800 ml Balance 400 ml Intake Oral 2100 ml IV Total 100 ml Output Urine Total 1800 ml # Bowel Movements 1 Physical Exam Physical Exam sono-no hydro Plan Plan of Care keep martin f/u with Dr. Ney Eckert in 1-2 weeks Problems Medical Problems: (1) UTI (lower urinary tract infection) Status: Acute (2) Warfarin-induced coagulopathy Status: Acute Comment Review of Relevant I have reviewed the following items emile (where applicable) has been applied. Labs Laboratory Tests Test 07/31/16 14:00 07/31/16 14:50 07/31/16 15:40 08/01/16 04:45 Urine Collection Type Unknown Urine Color Yellow Urine Clarity Cloudy Urine pH 6.0 Urine Specific [place] 1.010 Urine Protein 30 mg/dL (NEG-TRACE) Urine Glucose (UA) Negative mg/dL (NEG) Urine Ketones (Stick) Negative mg/dL (NEG) Urine Blood Large (NEG) Urine Nitrite Positive (NEG) Urine Bilirubin Negative (NEG) Urine Urobilinogen Dipstick 1.0 mg/dL (0.2 mg/dL) Urine Leukocyte Esterase Large (NEG) Urine RBC >40 /HPF (0-2) Urine WBC >40 /HPF (0-4) Urine Squamous Epithelial Cells Occ /LPF Urine Bacteria Many /HPF (0-FEW) Urine Mucus Mod /LPF Prothrombin Time 34.9 SEC (11.7-14.0) 34.1 SEC (11.7-14.0) Prothromb Time International Ratio 3.8 (0.8-1.1) 3.7 (0.8-1.1) White Blood Count 6.1 x10^3/uL (4.0-11.0) 6.4 x10^3/uL (4.0-11.0) Red Blood Count 3.49 x10^6/uL (4.30-5.70) 3.17 x10^6/uL (4.30-5.70) Hemoglobin 11.1 g/dL (13.0-17.5) 10.2 g/dL (13.0-17.5) Hematocrit 32.1 % (39.0-53.0) 29.7 % (39.0-53.0) Mean Corpuscular Volume 92 fL (79-100) 94 fL (79-100) Mean Corpuscular Hemoglobin 32 pg (25-35) 32 pg (25-35) Mean Corpuscular Hemoglobin Concent 35 g/dL (31-37) 34 g/dL (31-37) Red Cell Distribution Width 15.7 % (11.5-14.5) 15.6 % (11.5-14.5) Platelet Count 137 x10^3/uL (140-400) 103 x10^3/uL (140-400) Neutrophils (%) (Auto) 63 % (31-73) 64 % (31-73) Lymphocytes (%) (Auto) 25 % (24-48) 23 % (24-48) Monocytes (%) (Auto) 9 % (0-9) 9 % (0-9) Eosinophils (%) (Auto) 3 % (0-3) 4 % (0-3) Basophils (%) (Auto) 1 % (0-3) 0 % (0-3) Neutrophils # (Auto) 3.8 x10^3uL (1.8-7.7) 4.1 x10^3uL (1.8-7.7) Lymphocytes # (Auto) 1.5 x10^3/uL (1.0-4.8) 1.5 x10^3/uL (1.0-4.8) Monocytes # (Auto) 0.5 x10^3/uL (0.0-1.1) 0.5 x10^3/uL (0.0-1.1) Eosinophils # (Auto) 0.2 x10^3/uL (0.0-0.7) 0.2 x10^3/uL (0.0-0.7) Basophils # (Auto) 0.0 x10^3/uL (0.0-0.2) 0.0 x10^3/uL (0.0-0.2) Sodium Level 134 mmol/L (136-145) 137 mmol/L (136-145) Potassium Level 5.3 mmol/L (3.5-5.1) 5.0 mmol/L (3.5-5.1) Chloride Level 101 mmol/L (98-107) 106 mmol/L (98-107) Carbon Dioxide Level 26 mmol/L (21-32) 25 mmol/L (21-32) Anion Gap 7 (6-14) 6 (6-14) Blood Urea Nitrogen 46 mg/dL (8-26) 43 mg/dL (8-26) Creatinine 2.4 mg/dL (0.7-1.3) 2.4 mg/dL (0.7-1.3) Estimated GFR (Cockcroft-Gault) 26.4 26.4 BUN/Creatinine Ratio 19 (6-20) 18 (6-20) Glucose Level 99 mg/dL (70-99) 100 mg/dL (70-99) Calcium Level 8.4 mg/dL (8.5-10.1) 7.9 mg/dL (8.5-10.1) Total Bilirubin 0.8 mg/dL (0.2-1.0) 0.8 mg/dL (0.2-1.0) Aspartate Amino Transf (AST/SGOT) 26 U/L (15-37) 23 U/L (15-37) Alanine Aminotransferase (ALT/SGPT) 27 U/L (16-63) 23 U/L (16-63) Alkaline Phosphatase 95 U/L (46-116) 80 U/L (46-116) Total Protein 7.5 g/dL (6.4-8.2) 6.6 g/dL (6.4-8.2) Albumin 3.5 g/dL (3.4-5.0) 3.1 g/dL (3.4-5.0) Albumin/Globulin Ratio 0.9 (1.0-1.7) 0.9 (1.0-1.7) Test 08/02/16 02:50 Prothrombin Time 29.3 SEC (11.7-14.0) Prothromb Time International Ratio 3.0 (0.8-1.1) Sodium Level 142 mmol/L (136-145) Potassium Level 4.7 mmol/L (3.5-5.1) Chloride Level 109 mmol/L (98-107) Carbon Dioxide Level 24 mmol/L (21-32) Anion Gap 9 (6-14) Blood Urea Nitrogen 36 mg/dL (8-26) Creatinine 2.4 mg/dL (0.7-1.3) Estimated GFR (Cockcroft-Gault) 26.4 Glucose Level 111 mg/dL (70-99) Calcium Level 7.9 mg/dL (8.5-10.1) Laboratory Tests Test 08/02/16 02:50 Prothrombin Time 29.3 SEC (11.7-14.0) Prothromb Time International Ratio 3.0 (0.8-1.1) Sodium Level 142 mmol/L (136-145) Potassium Level 4.7 mmol/L (3.5-5.1) Chloride Level 109 mmol/L (98-107) Carbon Dioxide Level 24 mmol/L (21-32) Anion Gap 9 (6-14) Blood Urea Nitrogen 36 mg/dL (8-26) Creatinine 2.4 mg/dL (0.7-1.3) Estimated GFR (Cockcroft-Gault) 26.4 Glucose Level 111 mg/dL (70-99) Calcium Level 7.9 mg/dL (8.5-10.1) Microbiology 07/31/16 Urine Culture - Preliminary, Resulted 07/31/16 Urine Culture Result 1 (RICARDO) - Preliminary, Resulted Medications Current Medications Sodium Chloride 1,000 ml @ 1,000 mls/hr Q1H IV Last administered on 07/31/16 15:46; Start 07/31/16 at 15:30; Stop 07/31/16 at 16:30; Status DC Ondansetron HCl (Zofran) 4 mg PRN Q8HRS PRN IV NAUSEA/VOMITING; Start 07/31/16 at 15:45; Stop 08/01/16 at 15:44; Status DC Sodium Chloride 1,000 ml @ 100 mls/hr Q10H IV Last administered on 08/01/16 15 :20; Start 07/31/16 at 15:36; Stop 08/01/16 at 15:35; Status DC Acetaminophen (Tylenol) 650 mg PRN Q4HRS PRN PO FEVER; Start 07/31/16 at 15:45; Stop 08/01/16 at 15:44; Status DC Piperacillin Sod/ Tazobactam Sod (Zosyn Per Pharmacy) 1 each PRN DAILY PRN MC SEE COMMENTS; Start 07/31/16 at 15:45 Piperacillin Sod/ Tazobactam Sod 3.375 gm/Sodium Chloride 50 ml @ 100 mls/hr 1X ONCE IV Last administered on 07/31/16 16:00; Start 07/31/16 at 16:00; Stop 07/31/16 at 16:30; Status DC Allopurinol (Zyloprim) 100 mg DAILY PO Last administered on 08/02/16 09:52; Start 08/01/16 at 09:00 Aspirin (Ecotrin) 81 mg DAILY PO Last administered on 08/02/16 09:52; Start 08/01/16 at 09:00 Atorvastatin Calcium (Lipitor) 20 mg HS PO Last administered on 08/01/16 20:52 ; Start 07/31/16 at 21:00 Diltiazem HCl (Cardizem 24hr Cd) 180 mg DAILY PO ; Start 08/01/16 at 09:00; Stop 08/01/16 at 09:00; Status DC Finasteride (Proscar) 5 mg DAILY PO Last administered on 08/02/16 09:52; Start 08/01/16 at 09:00 Furosemide (Lasix) 60 mg BID92 PO Last administered on 08/01/16 08:55; Start at 09:00; Stop 08/01/16 at 12:02; Status DC Lisinopril (Prinivil) 20 mg DAILY PO Last administered on 08/02/16 09:53; Start 08/01/16 at 09:00 Magnesium Oxide (Magnesium Oxide) 400 mg DAILY PO ; Start 08/01/16 at 09:00; Stop 08/01/16 at 09:00; Status DC Metoprolol Tartrate (Lopressor) 12.5 mg BID PO Last administered on 08/02/16 09 :52; Start 07/31/16 at 21:00 Sennosides (Senna) 8.6 mg PRN BID PRN PO CONSTIPATION, 1ST CHOICE; Start at 16:30 Warfarin Sodium (Coumadin) 5 mg DAILY16 PO ; Start 08/01/16 at 16:00; Stop at 16:00; Status DC Pantoprazole Sodium (Protonix) 40 mg DAILYAC PO Last administered on 08/02/16 05:24; Start 08/01/16 at 07:30 Non-Formulary Medication 1 cap DAILY IH ; Start 08/01/16 at 09:00; Stop 08/01/16 at 09:00; Status DC Piperacillin Sod/ Tazobactam Sod 2.25 gm/Sodium Chloride 50 ml @ 100 mls/hr Q6HRS IV Last administered on 08/02/16 05:24; Start 07/31/16 at 23:00 Albuterol/ Ipratropium (Duoneb) 3 ml RTQID NEB Last administered on 08/02/16 11 :26; Start 07/31/16 at 17:00 Warfarin Sodium (Coumadin Per Physician) 1 each PRN DAILY PRN MC SEE COMMENTS; Start 07/31/16 at 16:45; Stop 07/31/16 at 21:14; Status DC Warfarin Sodium (Coumadin Per Pharmacy) 1 each PRN DAILY PRN MC SEE COMMENTS Last administered on 08/01/16 14:43; Start 07/31/16 at 21:00 Info (Anti-Coagulation Monitoring By Pharmacy) 1 each PRN DAILY PRN MC SEE COMMENTS; Start 07/31/16 at 21:30 Furosemide (Lasix) 20 mg [id number] PO Last administered on 08/01/16 15:19; Start at 14:00 Warfarin Sodium (Coumadin) 5 mg DAILY PRN PO SEE COMMENTS; Start 08/01/16 at 12: 00; Status UNV Warfarin Sodium (Coumadin) 7.5 mg DAILY PRN PO SEE COMMENTS; Start 08/01/16 at 12:00; Status UNV Warfarin Sodium (Coumadin - No Dose Today) 1 each 1X WARF ONCE MC ; Start at 16:00; Stop 08/01/16 at 16:01; Status DC Active Scripts Active Metoprolol Tartrate 25 Mg Tablet 12.5 Mg PO BID Senna (Sennosides) 8.6 Mg Tablet 8.6 Mg PO PRN BID PRN Furosemide 20 Mg Tablet 60 Mg PO [id number] Reported Furosemide 20 Mg Tablet 20 Mg PO BID Coumadin (Warfarin Sodium) 7.5 Mg Tablet 1 Tab PO DAILY PRN Coumadin (Warfarin Sodium) 5 Mg Tablet 1 Tab PO DAILY PRN Dexilant (Dexlansoprazole) 60 Mg mp 1 Cap PO DAILY Spiriva (Tiotropium [place]) 18 Mcg Cap.w.dev 1 Cap IH DAILY Warfarin Sodium 5 Mg Tablet 5 Mg PO DAILY Lisinopril 20 Mg Tablet 1 Tab PO DAILY Indication: blood pressure Next dose: 05/09/14 am Proscar (Finasteride) 5 Mg Tablet 1 Tab PO DAILY Indication: prostate Next dose; 05/09/14 am Atorvastatin Calcium 20 Mg Tablet 20 Mg PO HS Indication: cholesterol Next dose; 05/09/14 bedtime Aspirin Ec (Aspirin) 81 Mg Tablet. 1 Tab PO DAILY Indication: heart/blood thinner Next dose: 05/09/14 am Allopurinol 100 Mg Tablet 100 Mg PO DAILY Vitals/I & O Vital Sign - Last 24 Hours 08/01/16 08/01/16 08/01/16 08/01/16 11:39 15:00 15:27 19:00 Temp 98.0 98.1 98.0 98.1 Pulse 68 87 Resp 18 18 B/P (MAP) 144/0 (48) 114/57 (76) Pulse Ox 97 98 O2 Delivery Room Air Room Air Room Air 08/01/16 08/01/16 08/01/16 08/01/16 20:03 20:13 20:52 23:00 Temp 98.4 98.4 Pulse 69 82 Resp 16 B/P (MAP) 147/80 120/53 (75) Pulse Ox 99 96 O2 Delivery Room Air Room Air Room Air 08/02/16 08/02/16 08/02/16 08/02/16 03:00 07:35 07:41 08:00 Temp 98.4 97.8 98.4 97.8 Pulse 85 88 Resp 16 17 B/P (MAP) 125/59 (81) 134/67 (89) Pulse Ox 94 100 95 O2 Delivery Room Air Room Air Room Air Room Air 08/02/16 08/02/16 08/02/16 09:52 09:53 11:27 Pulse 88 88 B/P (MAP) 134/67 134/67 O2 Delivery Room Air Intake and Output 08/01/16 08/01/16 08/02/16 15:00 23:00 07:00 Intake Total 650 ml 950 ml 600 ml Output Total 900 ml 900 ml Balance 650 ml 50 ml -300 ml LALY VASQUEZ MD August 02, 2016 11:29
[2016-08-02 11:42] VITALS: BP 129/62
[2016-08-02 15:20] VITALS: BP 109/56
[2016-08-02] MEDS ORDERED: WARFARIN 2 MG TABLET. PO ONE (16:00)
--- NOTE | 2016-08-02 16:38 | PDOC2 ---
CONSULT Date of Consult Date of Consult DATE: 08/02/16 TIME: 16:33 Reason for Consult Reason for Consult: RENAL FAILURE Referring Physician Referring Physician: ARON Identification/Chief Complaint Chief Complaint BLOOD IN URINE Source Source: Chart review, Patient History of Present Illness Reason for Visit: THIS IS A 75 YR OLD ADMITTED WITH URINATING BLOOD. HE WAS NOTED TO HAVE A CR OF 2.4 AND A K OF 5.3. HIS CR IS USUALLY 2.0 C/W STAGE 4 CKD. HX ALSO IS NOTABLE FOR NEUROGENIC BLADDER FOR WHICH HE HAS TO PERFORM SELF CATH NUMEROUS TIMES A DAY Past Medical History Cardiovascular: AFIB, HTN, Hyperlipidemia Pulmonary: Bronchitis, COPD, Pneumonia CENTRAL NERVOUS SYSTEM: Seizure GI: GERD Heme/Onc: Cancer, Other Psych: No pertinent hx Musculoskeletal: Osteoarthritis Rheumatologic: Gout Infectious disease: No pertinent hx Renal/: Chronic renal insuff, Benign prostatic enlarg., Hematuria Endocrine: No pertinent hx Past Surgical History Past Surgical History: Tonsillectomy, Colon Resection Family History Family History: Hypertension Social History No (his smokes) ALCOHOL: none Drugs: None Lives: with Family Domestic Violence: Neg Current Problem List Problem List Problems Medical Problems: (1) UTI (lower urinary tract infection) Status: Acute (2) Warfarin-induced coagulopathy Status: Acute Current Medications Current Medications Current Medications Sodium Chloride 1,000 ml @ 1,000 mls/hr Q1H IV Last administered on 07/31/16 15:46; Start 07/31/16 at 15:30; Stop 07/31/16 at 16:30; Status DC Ondansetron HCl (Zofran) 4 mg PRN Q8HRS PRN IV NAUSEA/VOMITING; Start 07/31/16 at 15:45; Stop 08/01/16 at 15:44; Status DC Sodium Chloride 1,000 ml @ 100 mls/hr Q10H IV Last administered on 08/01/16 15 :20; Start 07/31/16 at 15:36; Stop 08/01/16 at 15:35; Status DC Acetaminophen (Tylenol) 650 mg PRN Q4HRS PRN PO FEVER; Start 07/31/16 at 15:45; Stop 08/01/16 at 15:44; Status DC Piperacillin Sod/ Tazobactam Sod (Zosyn Per Pharmacy) 1 each PRN DAILY PRN MC SEE COMMENTS; Start 07/31/16 at 15:45 Piperacillin Sod/ Tazobactam Sod 3.375 gm/Sodium Chloride 50 ml @ 100 mls/hr 1X ONCE IV Last administered on 07/31/16 16:00; Start 07/31/16 at 16:00; Stop 07/31/16 at 16:30; Status DC Allopurinol (Zyloprim) 100 mg DAILY PO Last administered on 08/02/16 09:52; Start 08/01/16 at 09:00 Aspirin (Ecotrin) 81 mg DAILY PO Last administered on 08/02/16 09:52; Start 08/01/16 at 09:00 Atorvastatin Calcium (Lipitor) 20 mg HS PO Last administered on 08/01/16 20:52 ; Start 07/31/16 at 21:00 Diltiazem HCl (Cardizem 24hr Cd) 180 mg DAILY PO ; Start 08/01/16 at 09:00; Stop 08/01/16 at 09:00; Status DC Finasteride (Proscar) 5 mg DAILY PO Last administered on 08/02/16 09:52; Start 08/01/16 at 09:00 Furosemide (Lasix) 60 mg BID92 PO Last administered on 08/01/16 08:55; Start at 09:00; Stop 08/01/16 at 12:02; Status DC Lisinopril (Prinivil) 20 mg DAILY PO Last administered on 08/02/16 09:53; Start 08/01/16 at 09:00 Magnesium Oxide (Magnesium Oxide) 400 mg DAILY PO ; Start 08/01/16 at 09:00; Stop 08/01/16 at 09:00; Status DC Metoprolol Tartrate (Lopressor) 12.5 mg BID PO Last administered on 08/02/16 09 :52; Start 07/31/16 at 21:00 Sennosides (Senna) 8.6 mg PRN BID PRN PO CONSTIPATION, 1ST CHOICE; Start at 16:30 Warfarin Sodium (Coumadin) 5 mg DAILY16 PO ; Start 08/01/16 at 16:00; Stop at 16:00; Status DC Pantoprazole Sodium (Protonix) 40 mg DAILYAC PO Last administered on 08/02/16 05:24; Start 08/01/16 at 07:30 Non-Formulary Medication 1 cap DAILY IH ; Start 08/01/16 at 09:00; Stop 08/01/16 at 09:00; Status DC Piperacillin Sod/ Tazobactam Sod 2.25 gm/Sodium Chloride 50 ml @ 100 mls/hr Q6HRS IV Last administered on 08/02/16 14:07; Start 07/31/16 at 23:00 Albuterol/ Ipratropium (Duoneb) 3 ml RTQID NEB Last administered on 08/02/16 16 :10; Start 07/31/16 at 17:00 Warfarin Sodium (Coumadin Per Physician) 1 each PRN DAILY PRN MC SEE COMMENTS; Start 07/31/16 at 16:45; Stop 07/31/16 at 21:14; Status DC Warfarin Sodium (Coumadin Per Pharmacy) 1 each PRN DAILY PRN MC SEE COMMENTS Last administered on 08/02/16 12:28; Start 07/31/16 at 21:00 Info (Anti-Coagulation Monitoring By Pharmacy) 1 each PRN DAILY PRN MC SEE COMMENTS; Start 07/31/16 at 21:30 Furosemide (Lasix) 20 mg BID92 PO Last administered on 08/01/16 15:19; Start at 14:00 Warfarin Sodium (Coumadin) 5 mg DAILY PRN PO SEE COMMENTS; Start 08/01/16 at 12: 00; Status UNV Warfarin Sodium (Coumadin) 7.5 mg DAILY PRN PO SEE COMMENTS; Start 08/01/16 at 12:00; Status UNV Warfarin Sodium (Coumadin - No Dose Today) 1 each 1X WARF ONCE MC ; Start at 16:00; Stop 08/01/16 at 16:01; Status DC Warfarin Sodium (Coumadin) 2 mg 1X WARF ONCE PO ; Start 08/02/16 at 16:00; Stop 08/02/16 at 16:01; Status DC Active Scripts Active Metoprolol Tartrate 25 Mg Tablet 12.5 Mg PO BID Senna (Sennosides) 8.6 Mg Tablet 8.6 Mg PO PRN BID PRN Furosemide 20 Mg Tablet 60 Mg PO [id number] Reported Furosemide 20 Mg Tablet 20 Mg PO BID Coumadin (Warfarin Sodium) 7.5 Mg Tablet 1 Tab PO DAILY PRN Coumadin (Warfarin Sodium) 5 Mg Tablet 1 Tab PO DAILY PRN Dexilant (Dexlansoprazole) 60 Mg 1 Cap PO DAILY Spiriva (Tiotropium [place]) 18 Mcg Cap.wAnaliliadev 1 Cap IH DAILY Warfarin Sodium 5 Mg Tablet 5 Mg PO DAILY Lisinopril 20 Mg Tablet 1 Tab PO DAILY Indication: blood pressure Next dose: 05/09/14 am Proscar (Finasteride) 5 Mg Tablet 1 Tab PO DAILY Indication: prostate Next dose; 05/09/14 am Atorvastatin Calcium 20 Mg Tablet 20 Mg PO HS Indication: cholesterol Next dose; 05/09/14 bedtime Aspirin Ec (Aspirin) 81 Mg Tablet. 1 Tab PO DAILY Indication: heart/blood thinner Next dose: 05/09/14 am Allopurinol 100 Mg Tablet 100 Mg PO DAILY Allergies Allergies: Coded Allergies: No Known Drug Allergies (Unverified , 03/11/13) ROS General: YES: Fatigue, Appetite PSYCHOLOGICAL ROS: YES: Depression Eyes: Yes Decreased vision HEENT: YES: Heacaches Respiratory: YES: Cough Gastrointestinal: Yes Constipation Genitourinary: YES Hematuria, YES Retention Musculoskeletal: Yes Muscular Weakness Neurological: Yes Weakness Skin: Yes Dry Skin Physical Exam General: Alert, Oriented X3, Cooperative, No acute distress HEENT: Atraumatic, PERRLA, EOMI Lungs: Clear to auscultation Heart: Regular rate, Normal S1, Normal S2 Abdomen: Soft, No hepatosplenomegaly Extremities: Normal pulses Neuro: Normal speech Psych/Mental Status: Mental status NL, Mood NL MUSCULOSKELETAL: No deformity Vitals VITALS Vital Signs Date Time Temp Pulse Resp B/P (MAP) Pulse Ox O2 Delivery O2 Flow Rate FiO2 08/02/16 16:10 100 Room Air 08/02/16 15:20 97.8 83 17 109/56 (73) 97.8 Labs Labs Laboratory Tests Test 08/01/16 04:45 08/02/16 02:50 White Blood Count 6.4 x10^3/uL (4.0-11.0) Red Blood Count 3.17 x10^6/uL (4.30-5.70) Hemoglobin 10.2 g/dL (13.0-17.5) Hematocrit 29.7 % (39.0-53.0) Mean Corpuscular Volume 94 fL (79-100) Mean Corpuscular Hemoglobin 32 pg (25-35) Mean Corpuscular Hemoglobin Concent 34 g/dL (31-37) Red Cell Distribution Width 15.6 % (11.5-14.5) Platelet Count 103 x10^3/uL (140-400) Neutrophils (%) (Auto) 64 % (31-73) Lymphocytes (%) (Auto) 23 % (24-48) Monocytes (%) (Auto) 9 % (0-9) Eosinophils (%) (Auto) 4 % (0-3) Basophils (%) (Auto) 0 % (0-3) Neutrophils # (Auto) 4.1 x10^3uL (1.8-7.7) Lymphocytes # (Auto) 1.5 x10^3/uL (1.0-4.8) Monocytes # (Auto) 0.5 x10^3/uL (0.0-1.1) Eosinophils # (Auto) 0.2 x10^3/uL (0.0-0.7) Basophils # (Auto) 0.0 x10^3/uL (0.0-0.2) Prothrombin Time 34.1 SEC (11.7-14.0) 29.3 SEC (11.7-14.0) Prothromb Time International Ratio 3.7 (0.8-1.1) 3.0 (0.8-1.1) Sodium Level 137 mmol/L (136-145) 142 mmol/L (136-145) Potassium Level 5.0 mmol/L (3.5-5.1) 4.7 mmol/L (3.5-5.1) Chloride Level 106 mmol/L (98-107) 109 mmol/L (98-107) Carbon Dioxide Level 25 mmol/L (21-32) 24 mmol/L (21-32) Anion Gap 6 (6-14) 9 (6-14) Blood Urea Nitrogen 43 mg/dL (8-26) 36 mg/dL (8-26) Creatinine 2.4 mg/dL (0.7-1.3) 2.4 mg/dL (0.7-1.3) Estimated GFR (Cockcroft-Gault) 26.4 26.4 BUN/Creatinine Ratio 18 (6-20) Glucose Level 100 mg/dL (70-99) 111 mg/dL (70-99) Calcium Level 7.9 mg/dL (8.5-10.1) 7.9 mg/dL (8.5-10.1) Total Bilirubin 0.8 mg/dL (0.2-1.0) Aspartate Amino Transf (AST/SGOT) 23 U/L (15-37) Alanine Aminotransferase (ALT/SGPT) 23 U/L (16-63) Alkaline Phosphatase 80 U/L (46-116) Total Protein 6.6 g/dL (6.4-8.2) Albumin 3.1 g/dL (3.4-5.0) Albumin/Globulin Ratio 0.9 (1.0-1.7) Laboratory Tests Test 08/02/16 02:50 Prothrombin Time 29.3 SEC (11.7-14.0) Prothromb Time International Ratio 3.0 (0.8-1.1) Sodium Level 142 mmol/L (136-145) Potassium Level 4.7 mmol/L (3.5-5.1) Chloride Level 109 mmol/L (98-107) Carbon Dioxide Level 24 mmol/L (21-32) Anion Gap 9 (6-14) Blood Urea Nitrogen 36 mg/dL (8-26) Creatinine 2.4 mg/dL (0.7-1.3) Estimated GFR (Cockcroft-Gault) 26.4 Glucose Level 111 mg/dL (70-99) Calcium Level 7.9 mg/dL (8.5-10.1) Assessment/Plan Assessment/Plan IMP UTI HEMATURIA IATROGENIC COAGULOPATHY NEUROGENIC BLADDER REQUIRING SELF CATH CKD STAGE 4 WITH CR OF ABOUT 2.0 MILD ISABEL WITH CR OF 2.4 MILD HYPERKALEMIA WITH K OF 5.3 PLAN IVF'S ANTIBIOTICS WILL ENC COMPLIANCE WITH SELF CATH YESSY NICHOLS MD August 02, 2016 16:38
[2016-08-02 19:00] VITALS: BP 137/62
[2016-08-02] MEDS: ATORVASTATIN CALCIUM 20 MG TABLET PO SCH (21:28)
[2016-08-02 23:46] VITALS: BP 136/65
[2016-08-03 03:22] VITALS: BP 135/65
[2016-08-03] MEDS: PIPERACILLIN/TAZOBACTAM 2.25 GM in IV NORMAL SALINE 50ML 50 ML IV SCH (04:57)
[2016-08-03] MEDS: PANTOPRAZOLE 40 MG TABLET.DR. PO SCH (06:03)
[2016-08-03 07:00] VITALS: BP 135/61
[2016-08-03] MEDS: IPRATRPIUM/ALBUTEROL 0.5/2.5MG 3 ML NEBU. NEB SCH ×2 (07:24→11:17)
[2016-08-03 08:02] LABS: INR 2.1 (0.8-1.1); PROTHROMBIN TIME PATIENT 22.3 SEC (11.7-14.0)
[2016-08-03 08:11] LABS: CREATININE 2.1 mg/dL (0.7-1.3); GFR 30.8; POTASSIUM 4.6 mmol/L (3.5-5.1)
[2016-08-03] MEDS: LISINOPRIL 20 MG TABLET PO SCH (09:14)
[2016-08-03] MEDS: ALLOPURINOL 100 MG TABLET. PO SCH (09:14)
[2016-08-03] MEDS: FINASTERIDE 5 MG TABLET. PO SCH (09:15)
[2016-08-03] MEDS: ASPIRIN ENTERIC COATED 81 MG TABLET.DR. PO SCH (09:15)
[2016-08-03] MEDS: METOPROLOL TART IMMED RELEASE 25 MG TABLET. PO SCH (09:15)
[2016-08-03] MEDS: FUROSEMIDE 20 MG TABLET PO SCH ×2 (09:15→13:49)
--- NOTE | 2016-08-03 09:53 | PDOC ---
Infectious Disease Note Subjective Subjective Doing well . No complaints ROS ROS GEN: Denies fevers, chills, sweats HEENT: Denies blurred vision, sore throat CV: Denies chest pain RESP: Denies shortness of air, cough GI: Denies n/v/d NEURO: Denies confusion, dizziness MSK: Denies weakness, joint pain/swelling Vital Sign Vital Signs Vital Signs Date Time Temp Pulse Resp B/P (MAP) Pulse Ox O2 Delivery O2 Flow Rate FiO2 08/03/16 09:15 77 135/61 08/03/16 08:00 Room Air 08/03/16 07:25 100 08/03/16 07:00 98.0 18 98.0 Physical Exam PHYSICAL EXAM GENERAL: NAD, Alert, in chair HEENT: PERRL, OC/OP- clear. lacking teeth NECK: Supple, no JVD, no LN LUNGS: Clear HEART: S1S2, no gallop, no murmur ABD: Soft, NT, no organomegaly, no rebound Watson EXT: No edema, no cyanosis SAILMAKER: Alert, oriented x 3, no focal neurologic deficit SKIN: No rash IV: ok Labs Lab Laboratory Tests Test 08/03/16 07:15 Prothrombin Time 22.3 SEC (11.7-14.0) Prothromb Time International Ratio 2.1 (0.8-1.1) Sodium Level 139 mmol/L (136-145) Potassium Level 4.6 mmol/L (3.5-5.1) Chloride Level 106 mmol/L (98-107) Carbon Dioxide Level 21 mmol/L (21-32) Anion Gap 12 (6-14) Blood Urea Nitrogen 29 mg/dL (8-26) Creatinine 2.1 mg/dL (0.7-1.3) Estimated GFR (Cockcroft-Gault) 30.8 Glucose Level 101 mg/dL (70-99) Calcium Level 8.0 mg/dL (8.5-10.1) Micro Enterobacter cloacae complex 50,000-100,000 colony forming units per mL ANTIMICROBIAL SUSCEPTIBILITY Final Comment S = Susceptible; I = Intermediate; R = Resistant P = Positive; N = Negative MICS are expressed in micrograms per mL Antibiotic RSLT#1 RSLT#2 RSLT#3 RSLT#4 Amoxicillin/Clavulanic Acid R Cefazolin R Cefepime S Ceftriaxone S Cefuroxime R Cephalothin R Ciprofloxacin S Ertapenem S Gentamicin S Imipenem S Levofloxacin S Nitrofurantoin I Piperacillin S Tetracycline S Tobramycin S Trimethoprim/Sulfa S Objective Assessment CAUTI. POA Enterobacter 07/31 -re-uses catheters. -h/o Enterococcus-AmpS & Citrobacter Obstructive uropathy requiring intermittent self-catheterizations Hematuria. clearing Warfarin therapy CKD Plan Plan of Care de-escalate abx to po Cipro through 08/09 Will need INR managed agressively in outpatient as Cipro/Coumadin will interact but have no other good po options given sens and renal failure Monitor WBC, Cr and temp BJ ADAN MD August 03, 2016 09:53
[2016-08-03 10:35] VITALS: BP 126/62
--- NOTE | 2016-08-03 11:55 | PDOC ---
PROGRESS NOTES Chief Complaint Chief Complaint CC: UTI CAUTI Obstructive uropathy ISABEL better. HTN AFIB stable. PLAN ORAL CIPRO TILL 08/09, Coumadin INR 2-3, D/W PCP OFFICE, LABS WRITTEN, NEED DOSE ADJUSTMENT BASED ON OUT PT LABS, SCRIPT PROVIDED, PT EDUCATED. Keep Watson, Out pt follow up [facility] urology, Dr Ney Eckert in 2 weeks. History of Present Illness History of Present Illness no fever no chills doing better no acute events. Vitals Vitals Vital Signs Date Time Temp Pulse Resp B/P (MAP) Pulse Ox O2 Delivery O2 Flow Rate FiO2 08/03/16 11:18 Room Air 08/03/16 10:35 97.4 87 18 126/62 (83) 99 97.4 Physical Exam General: Alert, Oriented X3, Cooperative, No acute distress Heart: Regular rate, Normal S1, Normal S2 Lungs: Clear, Other Abdomen: Normal bowel sounds, Soft Extremities: Normal pulses Skin: No significant lesion Labs LABS Laboratory Tests Test 08/03/16 07:15 Prothrombin Time 22.3 SEC (11.7-14.0) Prothromb Time International Ratio 2.1 (0.8-1.1) Sodium Level 139 mmol/L (136-145) Potassium Level 4.6 mmol/L (3.5-5.1) Chloride Level 106 mmol/L (98-107) Carbon Dioxide Level 21 mmol/L (21-32) Anion Gap 12 (6-14) Blood Urea Nitrogen 29 mg/dL (8-26) Creatinine 2.1 mg/dL (0.7-1.3) Estimated GFR (Cockcroft-Gault) 30.8 Glucose Level 101 mg/dL (70-99) Calcium Level 8.0 mg/dL (8.5-10.1) Assessment and Plan Assessmemt and Plan Problems Medical Problems: (1) UTI (lower urinary tract infection) Status: Acute (2) Warfarin-induced coagulopathy Status: Acute Problems: Comment Review of Relevant I have reviewed the following items emile (where applicable) has been applied. Labs Laboratory Tests Test 08/02/16 02:50 08/03/16 07:15 Prothrombin Time 29.3 SEC (11.7-14.0) 22.3 SEC (11.7-14.0) Prothromb Time International Ratio 3.0 (0.8-1.1) 2.1 (0.8-1.1) Sodium Level 142 mmol/L (136-145) 139 mmol/L (136-145) Potassium Level 4.7 mmol/L (3.5-5.1) 4.6 mmol/L (3.5-5.1) Chloride Level 109 mmol/L (98-107) 106 mmol/L (98-107) Carbon Dioxide Level 24 mmol/L (21-32) 21 mmol/L (21-32) Anion Gap 9 (6-14) 12 (6-14) Blood Urea Nitrogen 36 mg/dL (8-26) 29 mg/dL (8-26) Creatinine 2.4 mg/dL (0.7-1.3) 2.1 mg/dL (0.7-1.3) Estimated GFR (Cockcroft-Gault) 26.4 30.8 Glucose Level 111 mg/dL (70-99) 101 mg/dL (70-99) Calcium Level 7.9 mg/dL (8.5-10.1) 8.0 mg/dL (8.5-10.1) Laboratory Tests Test 08/03/16 07:15 Prothrombin Time 22.3 SEC (11.7-14.0) Prothromb Time International Ratio 2.1 (0.8-1.1) Sodium Level 139 mmol/L (136-145) Potassium Level 4.6 mmol/L (3.5-5.1) Chloride Level 106 mmol/L (98-107) Carbon Dioxide Level 21 mmol/L (21-32) Anion Gap 12 (6-14) Blood Urea Nitrogen 29 mg/dL (8-26) Creatinine 2.1 mg/dL (0.7-1.3) Estimated GFR (Cockcroft-Gault) 30.8 Glucose Level 101 mg/dL (70-99) Calcium Level 8.0 mg/dL (8.5-10.1) Microbiology 07/31/16 Urine Culture - Final, Complete 07/31/16 Urine Culture Result 1 (RICARDO) - Final, Complete 07/31/16 Antimicrobic Susceptibility - Final, Complete Medications Current Medications Sodium Chloride 1,000 ml @ 1,000 mls/hr Q1H IV Last administered on 07/31/16t 15:46; Start 07/31/16 at 15:30; Stop 07/31/16 at 16:30; Status DC Ondansetron HCl (Zofran) 4 mg PRN Q8HRS PRN IV NAUSEA/VOMITING; Start 07/31/16 at 15:45; Stop 08/01/16 at 15:44; Status DC Sodium Chloride 1,000 ml @ 100 mls/hr Q10H IV Last administered on 08/01/16 15 :20; Start 07/31/16 at 15:36; Stop 08/01/16 at 15:35; Status DC Acetaminophen (Tylenol) 650 mg PRN Q4HRS PRN PO FEVER; Start 07/31/16 at 15:45; Stop 08/01/16 at 15:44; Status DC Piperacillin Sod/ Tazobactam Sod (Zosyn Per Pharmacy) 1 each PRN DAILY PRN MC SEE COMMENTS; Start 07/31/16 at 15:45; Stop 08/03/16 at 09:52; Status DC Piperacillin Sod/ Tazobactam Sod 3.375 gm/Sodium Chloride 50 ml @ 100 mls/hr 1X ONCE IV Last administered on 07/31/16 16:00; Start 07/31/16 at 16:00; Stop 07/31/16 at 16:30; Status DC Allopurinol (Zyloprim) 100 mg DAILY PO Last administered on 08/03/16 09:14; Start 08/01/16 at 09:00 Aspirin (Ecotrin) 81 mg DAILY PO Last administered on 08/03/16 09:15; Start 08/01/16 at 09:00 Atorvastatin Calcium (Lipitor) 20 mg HS PO Last administered on 08/02/16 21:28 ; Start 07/31/16 at 21:00 Diltiazem HCl (Cardizem 24hr Cd) 180 mg DAILY PO ; Start 08/01/16 at 09:00; Stop 08/01/16 at 09:00; Status DC Finasteride (Proscar) 5 mg DAILY PO Last administered on 08/03/16 09:15; Start 08/01/16 at 09:00 Furosemide (Lasix) 60 mg BID92 PO Last administered on 08/01/16 08:55; Start at 09:00; Stop 08/01/16 at 12:02; Status DC Lisinopril (Prinivil) 20 mg DAILY PO Last administered on 08/03/16 09:14; Start 08/01/16 at 09:00 Magnesium Oxide (Magnesium Oxide) 400 mg DAILY PO ; Start 08/01/16 at 09:00; Stop 08/01/16 at 09:00; Status DC Metoprolol Tartrate (Lopressor) 12.5 mg BID PO Last administered on 08/03/16 09 :15; Start 07/31/16 at 21:00 Sennosides (Senna) 8.6 mg PRN BID PRN PO CONSTIPATION, 1ST CHOICE; Start at 16:30 Warfarin Sodium (Coumadin) 5 mg DAILY16 PO ; Start 08/01/16 at 16:00; Stop at 16:00; Status DC Pantoprazole Sodium (Protonix) 40 mg DAILYAC PO Last administered on 08/03/16 06:03; Start 08/01/16 at 07:30 Non-Formulary Medication 1 cap DAILY IH ; Start 08/01/16 at 09:00; Stop 08/01/16 at 09:00; Status DC Piperacillin Sod/ Tazobactam Sod 2.25 gm/Sodium Chloride 50 ml @ 100 mls/hr Q6HRS IV Last administered on 08/03/16 04:57; Start 07/31/16 at 23:00; Stop 08/03 at 09:52; Status DC Albuterol/ Ipratropium (Duoneb) 3 ml RTQID NEB Last administered on 08/03/16 11 :17; Start 07/31/16 at 17:00 Warfarin Sodium (Coumadin Per Physician) 1 each PRN DAILY PRN MC SEE COMMENTS; Start 07/31/16 at 16:45; Stop 07/31/16 at 21:14; Status DC Warfarin Sodium (Coumadin Per Pharmacy) 1 each PRN DAILY PRN MC SEE COMMENTS Last administered on 08/02/16 12:28; Start 07/31/16 at 21:00 Info (Anti-Coagulation Monitoring By Pharmacy) 1 each PRN DAILY PRN MC SEE COMMENTS; Start 07/31/16 at 21:30 Furosemide (Lasix) 20 mg BID92 PO Last administered on 08/03/16 09:15; Start at 14:00 Warfarin Sodium (Coumadin) 5 mg DAILY PRN PO SEE COMMENTS; Start 08/01/16 at 12: 00; Status UNV Warfarin Sodium (Coumadin) 7.5 mg DAILY PRN PO SEE COMMENTS; Start 08/01/16 at 12:00; Status UNV Warfarin Sodium (Coumadin - No Dose Today) 1 each 1X WARF ONCE MC ; Start at 16:00; Stop 08/01/16 at 16:01; Status DC Warfarin Sodium (Coumadin) 2 mg 1X WARF ONCE PO Last administered on 08/02/16t 16:49; Start 08/02/16 at 16:00; Stop 08/02/16 at 16:01; Status DC Ciprofloxacin (Cipro) 500 mg BID PO ; Start 08/03/16 at 21:00 Active Scripts Active Metoprolol Tartrate 25 Mg Tablet 12.5 Mg PO BID Senna (Sennosides) 8.6 Mg Tablet 8.6 Mg PO PRN BID PRN Furosemide 20 Mg Tablet 60 Mg PO BID92 Reported Furosemide 20 Mg Tablet 20 Mg PO BID Coumadin (Warfarin Sodium) 7.5 Mg Tablet 1 Tab PO DAILY PRN Coumadin (Warfarin Sodium) 5 Mg Tablet 1 Tab PO DAILY PRN Dexilant (Dexlansoprazole) 60 Mg Cap.mp 1 Cap PO DAILY Spiriva (Tiotropium [place]) 18 Mcg Cap.w.dev 1 Cap IH DAILY Warfarin Sodium 5 Mg Tablet 5 Mg PO DAILY Lisinopril 20 Mg Tablet 1 Tab PO DAILY Indication: blood pressure Next dose: 05/09/14 am Proscar (Finasteride) 5 Mg Tablet 1 Tab PO DAILY Indication: prostate Next dose; 05/09/14 am Atorvastatin Calcium 20 Mg Tablet 20 Mg PO HS Indication: cholesterol Next dose; 05/09/14 bedtime Aspirin Ec (Aspirin) 81 Mg Tablet.dr 1 Tab PO DAILY Indication: heart/blood thinner Next dose: 05/09/14 am Allopurinol 100 Mg Tablet 100 Mg PO DAILY Vitals/I & O Vital Sign - Last 24 Hours 08/02/16 08/02/16 08/02/16 08/02/16 15:20 16:10 19:00 20:00 Temp 97.8 97.7 97.8 97.7 Pulse 83 86 Resp 17 18 B/P (MAP) 109/56 (73) 137/62 (87) Pulse Ox 98 100 98 O2 Delivery Room Air Room Air Room Air Room Air 08/02/16 08/02/16 08/03/16 08/03/16 21:27 23:46 03:22 07:00 Temp 98.0 97.6 98.0 98.0 97.6 98.0 Pulse 86 88 86 77 Resp 18 20 18 B/P (MAP) 123/67 136/65 (88) 135/65 (88) 135/61 (85) Pulse Ox 95 96 94 O2 Delivery Room Air Room Air Room Air 08/03/16 08/03/16 08/03/16 08/03/16 07:25 08:00 09:14 09:15 Pulse 77 77 B/P (MAP) 135/61 135/61 Pulse Ox 100 O2 Delivery Room Air Room Air 08/03/16 08/03/16 10:35 11:18 Temp 97.4 97.4 Pulse 87 Resp 18 B/P (MAP) 126/62 (83) Pulse Ox 99 O2 Delivery Room Air Room Air Intake and Output 08/02/16 08/02/16 08/03/16 15:00 23:00 07:00 Intake Total 480 ml 720 ml 720 ml Output Total 450 ml 1250 ml 700 ml Balance 30 ml -530 ml 20 ml MIGUEL DENTON MD August 03, 2016 11:55
--- NOTE | 2016-08-03 12:09 | PDOC ---
Renal-Progress Notes Subjective Notes Notes NONE History of Present Illness Hx of present illness NO CHANGE Vitals Vitals Vital Signs Date Time Temp Pulse Resp B/P (MAP) Pulse Ox O2 Delivery O2 Flow Rate FiO2 08/03/16 11:18 Room Air 08/03/16 10:35 97.4 87 18 126/62 (83) 99 97.4 Weight Weight [ ] I.O. Intake and Output Intake and Output 08/03/16 06:59 Intake Total 1920 ml Output Total 2400 ml Balance -480 ml Intake Oral 1920 ml Output Urine Total 2400 ml Labs Labs Laboratory Tests Test 08/03/16 07:15 Prothrombin Time 22.3 SEC (11.7-14.0) Prothromb Time International Ratio 2.1 (0.8-1.1) Sodium Level 139 mmol/L (136-145) Potassium Level 4.6 mmol/L (3.5-5.1) Chloride Level 106 mmol/L (98-107) Carbon Dioxide Level 21 mmol/L (21-32) Anion Gap 12 (6-14) Blood Urea Nitrogen 29 mg/dL (8-26) Creatinine 2.1 mg/dL (0.7-1.3) Estimated GFR (Cockcroft-Gault) 30.8 Glucose Level 101 mg/dL (70-99) Calcium Level 8.0 mg/dL (8.5-10.1) Micro Micro Microbiology 07/31/16 Urine Culture - Final, Complete 07/31/16 Urine Culture Result 1 (RICARDO) - Final, Complete 07/31/16 Antimicrobic Susceptibility - Final, Complete Review of Systems Constitutional: yes: no symptom reported Pulmonary: Yes no symptom reported Gastrointestional: Yes: no symptom reported Musculoskeletal: Yes: no symptom reported Psychiatric/Neurological: Yes: no symptom reported Physical Exam General Appearance: no apparent distress Skin: warm Respiratory: bilateral CTA Heart: S1S2, no thrills Abdomen: soft, bowel sounds present Genitourinary: bladder flat Extremities: pulses present Neurology: alert Musculoskeletal: Osteoarthritis Assessment Assessment IMP CKD STAGE 3 TO 4 WITH CR STABLE AT 2.1 HEMATURIA-UTI ATONIC BLADDER PLAN WILL ENC COMPLIANCE WITH SELF CATH ANTIBIOTICS WILL FOLLOW NEEDED YESSY NICHOLS MD August 03, 2016 12:09
[2016-08-03] MEDS ORDERED: WARF5TAB7 PO (13:00)
[2016-08-03] MEDS ORDERED: CIPR250T30 PO (13:00)
[2016-08-03] MEDS ORDERED: WARFARIN 5 MG TABLET. PO ONE (14:00)
[2016-08-03] MEDS ORDERED: CIPROFLOXACIN HCL 250 MG TABLET. PO SCH (21:00)
--- NOTE | 2016-08-03 21:43 | DS ---
DATE OF DISCHARGE: 08/03/2016 DISCHARGE DIAGNOSES: 1. Catheter associated urinary tract infection. 2. Obstructive uropathy. 3. Acute kidney injury due to above, resolving. 4. Hypertension. 5. Chronic atrial fibrillation, rate controlled, on warfarin. BRIEF HOSPITAL COURSE: A 75-year-old male patient admitted to the hospital for urinary tract infection. He has a history of resistant UTI. Initially he was placed on broad spectrum antibiotics such as Zosyn and later antibiotics have been changed to ciprofloxacin based on sensitivities. Urine cultures showed Enterobacter sensitive to ciprofloxacin. As per Dr. Reza's recommendations we will continue antibiotics until 08/09/2016. Script has been provided to the patient and he has been educated about close management of his INR and primary care doctor's office has been notified and scripts provided for labs. The patient needs to go to the lab and check his INR at least 2 times before his office visit. Primary care doctor will adjust the dosage according to his INR. Today the patient's creatinine is 2.1 and deemed stable enough to go home and follow up with primary care doctor. DISCHARGE PHYSICAL EXAMINATION: GENERAL: Alert, oriented x 3. HEART: S1, S2 present. LUNGS: Anterior chest clear. ABDOMEN: Soft, nontender, no organomegaly. EXTREMITIES: No edema. DISCHARGE DISPOSITION: Home. DISCHARGE CONDITION: Stable. FOLLOWUP: With primary care doctor. New script provided. MEDICATIONS: Reviewed and reconciled. Please see MRAD. New medication is ciprofloxacin 500 mg p.o. daily until 08/09/2016. Total time spent for discharge is 35 minutes for patient education, counseling, and coordination of care. MIGUEL DENTON MD DR: ELLIOTT/scott JOB#: [id number] / [id number] MTDD
--- NOTE | 2016-08-04 01:20 | CONS ---
DATE OF CONSULTATION: 08/02/2016 REASON FOR CONSULTATION: Evaluate and treat longstanding mycotic nails. REVIEW OF RECORD: This is a 75-year-old male admitted with hematuria with foul smelling and cloudy urine. PAST MEDICAL HISTORY: Atrial fibrillation, hypertension, hyperlipidemia, bronchitis, COPD, pneumonia, seizures, GERD, osteoarthritis, gout, chronic renal insufficiency, benign prostatic hypertrophy, hematuria. PAST SURGICAL HISTORY: Tonsillectomy and colon resection. SOCIAL HISTORY: Denies smoking, not currently. Alcohol, none. Drugs, none. MEDICATIONS: Reviewed including the fact that he takes Coumadin/warfarin 5 mg a day most likely for his atrial fibrillation. He also takes allopurinol for gout. ALLERGIES: None. PHYSICAL EXAMINATION: DERMAL: The patient has elongated mycotic nails of all digits. Many nails have some dried blood underneath the nail plate, especially the left great toenail. Decreased turgor. Absence of hair growth is noted. VASCULAR: Pedal pulses are diminished +1/4 bilateral with a trace of nonpitting edema. MUSCULOSKELETAL: Bunion deformities are noted with hammertoe deformities. NEUROLOGIC: The patient appears to respond to normal sensation, to sharp instrumentation. ASSESSMENT: 1. Evidence of peripheral vascular disease. 2. Clinical evidence of onychomycosis, onychocryptosis, onycholysis of all 10 toenails chronic in nature. PLAN: Debridement of all mycotic nails, remove most of the thick gryphotic nail plates as much as possible. Would strongly advised continued ____. Encourage continued maintenance care for his hard to cut chronic onychomycosis on an outpatient basis. ROMAN BARKLEY DPM DR: ARIES/scott JOB#: [id number] / [id number]
== END 2016-08-03 14:43 | disposition home or self-care (01) | DRG 699 ==
LOC: ER 13:45 → 5 SOUTH 15:45
PROVIDERS: ADMIT Internal Medicine; ATTEND Internal Medicine
DX: T83.518A Infection and inflammatory reaction due to other urinary catheter, initial encounter (principal); E44.0 Moderate protein-calorie malnutrition; I13.0 Hypertensive heart and chronic kidney disease with heart failure and stage 1 through stage 4 chronic kidney disease, or unspecified chronic kidney disease; N18.4 Chronic kidney disease, stage 4 (severe); N17.9 Acute kidney failure, unspecified; N39.0 Urinary tract infection, site not specified; N13.8 Other obstructive and reflux uropathy; D68.9 Coagulation defect, unspecified; N13.9 Obstructive and reflux uropathy, unspecified; E78.5 Hyperlipidemia, unspecified; E87.5 Hyperkalemia; I48.2 Chronic atrial fibrillation; I50.9 Heart failure, unspecified; E78.00 Pure hypercholesterolemia, unspecified; D63.1 Anemia in chronic kidney disease; J44.9 Chronic obstructive pulmonary disease, unspecified; K21.9 Gastro-esophageal reflux disease without esophagitis; M19.90 Unspecified osteoarthritis, unspecified site; R56.9 Unspecified convulsions; M10.00 Idiopathic gout, unspecified site; I73.9 Peripheral vascular disease, unspecified; N31.2 Flaccid neuropathic bladder, not elsewhere classified; Y84.6 Urinary catheterization as the cause of abnormal reaction of the patient, or of later complication, without mention of misadventure at the time of the procedure; N40.1 Benign prostatic hyperplasia with lower urinary tract symptoms; Z79.01 Long term (current) use of anticoagulants; Z79.82 Long term (current) use of aspirin; Z82.3 Family history of stroke; Z82.49 Family history of ischemic heart disease and other diseases of the circulatory system; Z85.038 Personal history of other malignant neoplasm of large intestine; Z87.440 Personal history of urinary (tract) infections; Z87.891 Personal history of nicotine dependence; Z87.01 Personal history of pneumonia (recurrent); Z68.26 Body mass index [BMI] 26.0-26.9, adult
CPT/HCPCS: 36415; 76770; 80048; 80053; 81001; 85027; 85610; 87086; 87186; 94250; 94640; 94760; 96374; A4314; J2543; J7030; J7620; 99285-25

== ENCOUNTER 2016-08-04 21:00 | Emergency (ER) | payer BC ==
[~2016-08-04] VITALS: Ht 190.5 cm; Wt 97.5 kg
[~2016-08-04 21:00] MED LIST changes: +CIPR250T30 PO; +WARF-78 PO; +WARF7.5T48 PO
[2016-08-04 21:53] LABS: BASO % 1 % (0-3); EOS % 5 % (0-3); HEMATOCRIT 28.8 % (39.0-53.0); HEMOGLOBIN 9.8 g/dL (13.0-17.5); LYMPH # 1.3 x10^3/uL (1.0-4.8); LYMPH % 19 % (24-48); MEAN CORPUSCULAR HEMOGLOBIN 32 pg (25-35); MEAN CORPUSCULAR HGB CONC 34 g/dL (31-37); MEAN CORPUSCULAR VOLUME 93 fL (79-100); MONO % 10 % (0-9); NEUT % 66 % (31-73); PLATELET COUNT 128 x10^3/uL (140-400); RED BLOOD COUNT 3.08 x10^6/uL (4.30-5.70); RED CELL DISTRIBUTION WIDTH 15.3 % (11.5-14.5); WHITE BLOOD COUNT 7.2 x10^3/uL (4.0-11.0)
[2016-08-04 21:54] LABS: GLUCOSE,URINE NEGATIVE (NEG); PH,URINE 5.5; PROTEIN,URINE 100 mg/dL (NEG-TRACE)
[2016-08-04 22:03] LABS: CALCIUM 8.5 mg/dL (8.5-10.1); CREATININE 2.3 mg/dL (0.7-1.3); GFR 27.7; POTASSIUM 4.9 mmol/L (3.5-5.1)
[2016-08-04 22:05] LABS: INR 1.7 (0.8-1.1); PROTHROMBIN TIME PATIENT 18.9 SEC (11.7-14.0)
[2016-08-04 22:24] LABS: BACTERIA,URINE 0 /HPF (0-FEW); BILIRUBIN,URINE NEGATIVE (NEG); NITRITE,URINE NEGATIVE (NEG); RBC,URINE TNTC /HPF (0-2); SQUAMOUS EPITHELIAL CELL,UR OCC /LPF; WBC,URINE OCC /HPF (0-4)
--- NOTE | 2016-08-04 22:34 | PHYS DOC ---
Past Medical History Past Medical History: A-Fib, Cancer, CHF, COPD, GERD, High Cholesterol, Hypertension, Pneumonia, Other Additional Past Medical Histor: COLON CA, GOUT,ENLARGE PROSTATE Past Surgical History: Cancer Surgery, Tonsillectomy Additional Past Surgical Histo: colon resection secondary to colon CA Alcohol Use: None Drug Use: None Adult General Chief Complaint Chief Complaint: BLOOD IN URINE HPI HPI 75-year-old male with a history of A. fib currently on warfarin therapy presenting today with hematuria. He reports generally feeling not well. He's been taking his Coumadin as prescribed. He reports just finishing an antibiotic for urinary tract infection. He does have a urologist. He denies any clots in his urine. Onset today. Location urinary tract. Duration intermittent. No alleviating factors. Review of systems is negative for chest pain shortness of breath fevers chills. All other review of systems is negative unless otherwise noted in history of present illness. Review of Systems Review of Systems SEE ABOVE. Allergies Allergies Allergies Coded Allergies Type Severity Reaction Last Updated Verified No Known Drug Allergies 03/11/13 No Physical Exam Physical Exam Constitutional: Well developed, well nourished, no acute distress, non-toxic appearance. HENT: Normocephalic, atraumatic, bilateral external ears normal, oropharynx moist, no oral exudates, nose normal. [] Eyes: PERRLA, EOMI, conjunctiva normal, no discharge. Neck: Normal range of motion, no tenderness, supple, no stridor. [] Cardiovascular:Heart rate regular rhythm, no murmur Lungs & Thorax: Bilateral breath sounds clear to auscultation Abdomen: Bowel sounds normal, soft, no tenderness, no masses, no pulsatile masses. [] The catheter has pink tinged urine in it. Skin: Warm, dry, no erythema, no rash. Back: No tenderness, no CVA tenderness. [] Extremities: No tenderness, no cyanosis, no clubbing, ROM intact, no edema. Neurologic: Alert and oriented X 3, normal motor function, normal sensory function, no focal deficits noted. [] Psychologic: Affect normal, judgement normal, mood normal. [] Current Patient Data Vital Signs Vital Signs Date Time Temp Pulse Resp B/P (MAP) Pulse Ox O2 Delivery O2 Flow Rate FiO2 08/04/16 21:09 98.3 85 20 147/72 (97) 98 Room Air 98.3 Lab Values Laboratory Tests Test 08/04/16 21:43 08/04/16 21:45 White Blood Count 7.2 x10^3/uL (4.0-11.0) Red Blood Count 3.08 x10^6/uL (4.30-5.70) L Hemoglobin 9.8 g/dL (13.0-17.5) L Hematocrit 28.8 % (39.0-53.0) L Mean Corpuscular Volume 93 fL (79-100) Mean Corpuscular Hemoglobin 32 pg (25-35) Mean Corpuscular Hemoglobin Concent 34 g/dL (31-37) Red Cell Distribution Width 15.3 % (11.5-14.5) H Platelet Count 128 x10^3/uL (140-400) L Neutrophils (%) (Auto) 66 % (31-73) Lymphocytes (%) (Auto) 19 % (24-48) L Monocytes (%) (Auto) 10 % (0-9) H Eosinophils (%) (Auto) 5 % (0-3) H Basophils (%) (Auto) 1 % (0-3) Neutrophils # (Auto) 4.7 x10^3uL (1.8-7.7) Lymphocytes # (Auto) 1.3 x10^3/uL (1.0-4.8) Monocytes # (Auto) 0.7 x10^3/uL (0.0-1.1) Eosinophils # (Auto) 0.3 x10^3/uL (0.0-0.7) Basophils # (Auto) 0.0 x10^3/uL (0.0-0.2) Prothrombin Time 18.9 SEC (11.7-14.0) H Prothrombin Time INR 1.7 (0.8-1.1) H PTT 38 SEC (24-38) Sodium Level 136 mmol/L (136-145) Potassium Level 4.9 mmol/L (3.5-5.1) Chloride Level 104 mmol/L (98-107) Carbon Dioxide Level 25 mmol/L (21-32) Anion Gap 7 (6-14) Blood Urea Nitrogen 31 mg/dL (8-26) H Creatinine 2.3 mg/dL (0.7-1.3) H Estimated GFR (Cockcroft-Gault) 27.7 Glucose Level 114 mg/dL (70-99) H Calcium Level 8.5 mg/dL (8.5-10.1) Urine Collection Type Unknown Urine Color Red Urine Clarity Turbid Urine pH 5.5 Urine Specific [place] 1.010 Urine Protein 100 mg/dL (NEG-TRACE) Urine Glucose (UA) Negative mg/dL (NEG) Urine Ketones (Stick) Negative mg/dL (NEG) Urine Blood Large (NEG) Urine Nitrite Negative (NEG) Urine Bilirubin Negative (NEG) Urine Urobilinogen Dipstick 1.0 mg/dL (0.2 mg/dL) Urine Leukocyte Esterase Moderate (NEG) Urine RBC Tntc /HPF (0-2) Urine WBC Occ /HPF (0-4) Urine Squamous Epithelial Cells Occ /LPF Urine Bacteria 0 /HPF (0-FEW) Urine Mucus Slight /LPF Laboratory Tests 08/04/16 21:43 Laboratory Tests 08/04/16 21:43 EKG EKG [] Radiology/Procedures Radiology/Procedures [] Course & Med Decision Making Course & Med Decision Making Pertinent Labs and Imaging studies reviewed. (See chart for details) [] 75-year-old with hematuria. Currently has Watson in. No history of clots. He did have a small clot that he noticed while in the emergency department. Blood work showed a mild anemia. Patient was hemodynamically stable. Heart rate in the 80s. Urinalysis negative nitrites with moderate leuk esterase occasional white blood cells no bacteria occasional squamous cells. We will follow culture on this. Chemistry panel shows chronic kidney disease. I recommended the patient follow up with his primary care physician over the next 2-3 days. The patient was then discharged home in stable condition to follow up with their primary care physician over the next 2-3 days. They were to return if their symptoms worsened or if they were concerned for any reason. [id number] discharge instructions and return precautions were given. Patient's questions were answered to their satisfaction. Patient is comfortable plan. Dragon Disclaimer Dragon Disclaimer This electronic medical record was generated, in whole or in part, using a voice recognition dictation system. Departure Departure Impression: Primary Impression: Hematuria Disposition: 01 HOME, SELF-CARE Condition: STABLE Referrals: CLARENCE BROOKS (PCP) DENNIS GREEN DO Patient Instructions: Hematuria, Adult Additional Instructions: Thank you for allowing us to participate in your care today. Followup with your primary care physician in [address] Green in 4-5 days if your symptoms do not improve. If you do not have a primary care provider you can ask for a list of our primary care providers. Return to the emergency department you have any new or concerning findings. This should be evaluated by the primary care physician and any necessary consulting services for continued management within a few days after discharge. Return to emergency room if you have any new or concerning symptoms including but not limited to fever, chills, nausea, vomiting, intractable pain, any new rashes, chest pain, shortness of air, uncontrolled bleeding, difficulty breathing, and/or vision loss. MIRANDA PERDUE MD August 04, 2016 22:34
[2016-08-04 22:50] VITALS: BP 149/70
== END 2016-08-04 22:50 | disposition home or self-care (01) ==
LOC: ER 21:00
DX: R31.9 Hematuria, unspecified (principal); D64.9 Anemia, unspecified; I48.91 Unspecified atrial fibrillation; I11.0 Hypertensive heart disease with heart failure; I50.9 Heart failure, unspecified; J44.9 Chronic obstructive pulmonary disease, unspecified; K21.9 Gastro-esophageal reflux disease without esophagitis; E78.00 Pure hypercholesterolemia, unspecified; M10.9 Gout, unspecified; Z87.01 Personal history of pneumonia (recurrent); Z79.01 Long term (current) use of anticoagulants
CPT/HCPCS: 36415; 80048; 81001; 85027; 85610; 85730; 87086; 99284

== ENCOUNTER 2016-09-17 02:15 | Emergency (ER) | payer BC ==
[~2016-09-17] VITALS: Ht 182.9 cm; Wt 97.5 kg
[~2016-09-17 02:15] MED LIST changes: +ASPI-612 PO; -ASPI81TA9 PO; -DEXL60CA PO; +DEXL60CA2 PO; +SENN-79 PO; -SENN8.6T3 PO
[2016-09-17 02:20] VITALS: BP 144/70
--- NOTE | 2016-09-17 03:10 | PHYS DOC ---
Past Medical History Past Medical History: A-Fib, Cancer, CHF, COPD, GERD, High Cholesterol, Hypertension, Pneumonia, Other Additional Past Medical Histor: COLON CA, GOUT,ENLARGE PROSTATE Past Surgical History: Cancer Surgery, Tonsillectomy Additional Past Surgical Histo: colon resection secondary to colon CA Alcohol Use: None Drug Use: None Adult General Chief Complaint Chief Complaint: BLOOD IN URINE [facility] Patient is a 75 year old male who presents with hematuria after using intermittent straight cath that was painful. He had pain with catheter, but no longer has pain. He denies abdominal pain, dysuria, fever or chills, nausea or vomiting, bloody stools, bruising. States he is taking his medications as prescribed. Has no other complaints. Review of Systems Review of Systems Constitutional: Denies fever or chills [] Eyes: Denies change in visual acuity, redness, or eye pain [] HENT: Denies nasal congestion or sore throat [] Respiratory: Denies cough or shortness of breath [] Cardiovascular: No additional information not addressed in HPI [] GI: Denies abdominal pain, nausea, vomiting, bloody stools or diarrhea [] : Denies dysuria [] Musculoskeletal: Denies back pain or joint pain [] Integument: Denies rash or skin lesions [] Neurologic: Denies headache, focal weakness or sensory changes [] Endocrine: Denies polyuria or polydipsia [] Allergies Allergies Allergies Coded Allergies Type Severity Reaction Last Updated Verified No Known Drug Allergies 03/11/13 No Physical Exam Physical Exam Constitutional: Well developed, well nourished, no acute distress, non-toxic appearance. [] HENT: Normocephalic, atraumatic, bilateral external ears normal, oropharynx moist, nose normal. [] Eyes: PERRLA, EOMI. [] Neck: Normal range of motion, supple. [] Cardiovascular:Heart rate regular rhythm [] Lungs & Thorax: Bilateral breath sounds clear to auscultation [] Abdomen: Bowel sounds normal, soft, no tenderness. [] Skin: Warm, dry, no erythema, no rash. [] Back: Normal range of motion. [] Extremities: No tenderness, ROM intact. [] Neurologic: Alert and oriented X 3, normal motor function, normal sensory function, no focal deficits noted. [] Psychologic: Affect normal, judgement normal, mood normal. [] Current Patient Data Vital Signs Vital Signs Date Time Temp Pulse Resp B/P (MAP) Pulse Ox O2 Delivery O2 Flow Rate FiO2 09/17/16 02:20 98.1 63 18 144/70 (94) 97 Room Air 98.1 Lab Values Laboratory Tests Test 09/17/16 03:10 Urine Collection Type Unknown Urine Color Yellow Urine Clarity Cloudy Urine pH 6.0 Urine Specific [place] 1.010 Urine Protein Negative mg/dL (NEG-TRACE) Urine Glucose (UA) Negative mg/dL (NEG) Urine Ketones (Stick) Negative mg/dL (NEG) Urine Blood Moderate (NEG) Urine Nitrite Positive (NEG) Urine Bilirubin Negative (NEG) Urine Urobilinogen Dipstick 0.2 mg/dL (0.2 mg/dL) Urine Leukocyte Esterase Large (NEG) Urine RBC >40 /HPF (0-2) Urine WBC Tntc /HPF (0-4) Urine Squamous Epithelial Cells Few /LPF Urine Bacteria Moderate /HPF (0-FEW) Course & Med Decision Making Course & Med Decision Making Pertinent Labs and Imaging studies reviewed. (See chart for details) Discussed his symptoms are likely due to traumatic intermittent catheter use vs UTI. No gross hematuria here. Return precautions given. He understands and agrees with plan. Dragon Disclaimer Dragon Disclaimer This electronic medical record was generated, in whole or in part, using a voice recognition dictation system. Departure Departure Impression: Primary Impression: Acute cystitis with hematuria Disposition: HOME, SELF-CARE Condition: STABLE Referrals: CLARENCE BROOKS (PCP) Patient Instructions: Clean Intermittent Catheterization, Male Additional Instructions: Take Bactrim for urinary tract infection. Follow-up with your primary care doctor closely to monitor coumadin level (INR). Return for any concerns. Scripts Sulfamethoxazole/Trimethoprim (BACTRIM DS TABLET) 1 Each Tablet 1 TAB PO BID, #14 TAB Prov: David MACIAS MD 09/17/16 David MACIAS MD Sep 17, 2016 03:10
[2016-09-17 04:00] LABS: BILIRUBIN,URINE NEGATIVE (NEG); GLUCOSE,URINE NEGATIVE (NEG); NITRITE,URINE POSITIVE (NEG); PROTEIN,URINE NEGATIVE (NEG-TRACE); UROBILINOGEN,URINE 0.2 mg/dL (0.2 mg/dL)
[2016-09-17 04:24] LABS: BACTERIA,URINE MODERATE /HPF (0-FEW); RBC,URINE >40 /HPF (0-2); SQUAMOUS EPITHELIAL CELL,UR FEW /LPF; WBC,URINE TNTC /HPF (0-4)
[2016-09-17] MEDS ORDERED: SULF1TAB24 PO (04:31)
[2016-09-17 05:50] LABS: POTASSIUM ISTAT 3.8 mmol/L (3.5-5.0)
== END 2016-09-17 04:41 | disposition home or self-care (01) ==
LOC: ER 02:15
DX: N30.01 Acute cystitis with hematuria (principal); I48.91 Unspecified atrial fibrillation; I11.0 Hypertensive heart disease with heart failure; I50.9 Heart failure, unspecified; J44.9 Chronic obstructive pulmonary disease, unspecified; K21.9 Gastro-esophageal reflux disease without esophagitis; E78.00 Pure hypercholesterolemia, unspecified; M10.9 Gout, unspecified; N40.0 Benign prostatic hyperplasia without lower urinary tract symptoms; Z90.49 Acquired absence of other specified parts of digestive tract; Z87.01 Personal history of pneumonia (recurrent)
CPT/HCPCS: 80047; 81001; 84484; 87086; 99284